=== PATIENT | male | born 1945 | race Caucasian/White ===

== ENCOUNTER 2017-04-20 11:30 | Outpatient (RCR) | payer MEDICARE, OTHER, SELFPAY ==
[2017-03-21 01:21] VITALS: BP 134/66; BP 168/60
--- NOTE | 2017-04-20 14:11 | PCM.CR.ITP ---
Exercise - Initial Assessment - Stages of Change Stages of Change:: Action - Exercise Prescription Mode:: Treadmill, Rower, Airdyne, NuStep Angina with exercise?: No Target Heart Rate:: 110-118 - Hypertension Do any of the following apply?: Yes - Intervention Home Exercise/Activity Goal:: Sitting Time <3 hrs/day - Education Goals:: Warm-up, RPE LURDES Scale, S/S, Safe Exercise, Self-Monitoring - Exercise Program Goals Exercise Program Goals: Aerobic Activity >30 min Exercise - 30-day Assessment - Stages of Change Stages of Change:: Action - Exercise Prescription Mode:: Treadmill, Airdyne, NuStep Frequency (x/week): 3 Duration:: 35 METs - Progression: 0.5-1 MET as tolerated: 3.1 Target Heart Rate:: 110-118 - Intervention Home Exercise/Activity Goal:: Sitting Time <3 hrs/day - Education Goals:: Warm-up, RPE LURDES Scale, S/S, Safe Exercise, Self-Monitoring - Exercise Program Goals Exercise Program Goals: Aerobic Activity >30 min Exercise - 60-Day Assessment - Visit Date of Eval: 03/18/17 - Stages of Change Stages of Change:: Action - Exercise Prescription Mode:: Treadmill, Airdyne, NuStep Frequency (x/week): 3 Duration:: 30 METs: 4.7 Target Heart Rate:: 110-118 - Hypertension Medication Changes:: No - Intervention Home Exercise/Activity Goal:: Sitting Time <3 hrs/day - Education Goals:: Warm-up, RPE LURDES Scale, S/S, Safe Exercise, Self-Monitoring - Exercise Program Goals Exercise Program Goals: Aerobic Activity >30 min Exercise - 90-Day Assessment - Visit Date of Eval: 04/20/17 Session #:: 30 - Stages of Change Stages of Change:: Action - Exercise Prescription Mode:: Treadmill, Airdyne, NuStep Frequency (x/week): 3 - patient at maximal levels Duration:: 30 METs: 4.7 Target Heart Rate:: 110-118 - Hypertension Resting Blood Pressure:: 122/56 Peak Exercise Blood Pressure:: 158/70 Medication Changes:: No - Intervention Home Exercise/Activity Goal:: Sitting Time <3 hrs/day - Education Goals:: Warm-up, RPE LURDES Scale, S/S, Safe Exercise, Self-Monitoring - Exercise Program Goals Exercise Program Goals: Aerobic Activity >30 min Exercise - Final/Discharge - Hypertension Do any of the following apply?: Yes Nutrition - Initial Assessment - Program Goals Nutrition Program Goals: LDL <70. Total Cholesterol <200. HDL >45. Triglycerides <150. HgbA1C <7%. BMI <25 - Stages of Change Stages of Change:: Action - Lipids HDL Cholesterol (mg/dL) Goal = less than 45 mg/dL: 31 LDL Cholesterol (mg/dL) Goal = less than 70 mg/dL: 79 - Diabetes Diabetes:: No Non-Insulin Dependent?: No - Weight Management Body Fat %:: 27.91 Total Score:: 6 - Intervention Referral to dietitian:: No Referral to Diabetic Clinic:: No Will attend diet classes:: Yes - Education Gave educational materials for:: Healthy eating Nutrition - 30-Day Assessment - Program Goals Nutrition Program Goals: LDL <70. Total Cholesterol <200. HDL >45. Triglycerides <150. HgbA1C <7%. BMI <25 - Stages of Change Stages of Change:: Action - Lipids Has the patient seen the dietitian?: No - Diabetes Diabetes:: No Insulin: No Non-Insulin Dependent?: No - Intervention Referral to dietitian:: No Referral to Diabetic Clinic:: No Will attend diet classes:: Yes - Education Attended class for:: Healthy eating Nutrition - 60-Day Assessment - Program Goals Nutrition Program Goals: LDL <70. Total Cholesterol <200. HDL >45. Triglycerides <150. HgbA1C <7%. BMI <25 - Visit Date of Eval: 03/18/17 - Stages of Change Stages of Change:: Action - Lipids Has the patient seen the dietitian?: No - Diabetes Diabetes:: No Insulin: No Non-Insulin Dependent?: No - Intervention Referral to dietitian:: No Referral to Diabetic Clinic:: No Will attend diet classes:: Yes - Education Attended class for:: Healthy eating Nutrition - 90-Day Assessment - Program Goals Nutrition Program Goals: LDL <70. Total Cholesterol <200. HDL >45. Triglycerides <150. HgbA1C <7%. BMI <25 - Visit Date of Eval: 04/20/17 - Stages of Change Stages of Change:: Action - Lipids Has the patient seen the dietitian?: No - Diabetes Diabetes:: No Insulin: No Non-Insulin Dependent?: No - Weight Management Weight:: 90.038 kg - Intervention Referral to dietitian:: No Referral to Diabetic Clinic:: No Will attend diet classes:: Yes - Education Attended class for:: Healthy eating Nutrition - Final Assessment - Program Goals Nutrition Program Goals: LDL <70. Total Cholesterol <200. HDL >45. Triglycerides <150. HgbA1C <7%. BMI <25 - Diabetes Diabetes:: No Insulin: No Non-Insulin Dependent?: No - Weight Management Body Fat %:: 27.91 Total Score:: 6 - Intervention Referral to dietitian:: No Referral to Diabetic Clinic:: No Will attend diet classes:: Yes Tobacco - Initial Assessment - Program Goals Tobacco Program Goals: Complete smoking cessation. Attend education classes. Improve Knowledge Test score - Stage of Change Stages of Change:: Action - Learning Barriers Learning Barriers: Vision, Ready to Learn Total Score:: 10 - Family Support Do you have family support?: No - Tobacco Use Tobacco Use: Cigarettes How many cigarettes do you smoke per day?: 20 Years Smokin Do you use smokeless tobacco?: No - Intervention Smoking Cessation Referral:: Yes Individual Education/Counseling:: No Education Schedule Given:: Yes - Education Gave educational material for:: Tobacco triggers, Coronary artery disease, Risk factors, Sexuality, Medical compliance, Cardiac A&P, Angina signs & symptoms Tobacco - 30-Day Assessment - Program Goals Tobacco Program Goals: Complete smoking cessation. Attend education classes. Improve Knowledge Test score - Stage of Change Stages of Change:: Action - Learning Barriers Learning Barriers: Participates in education - Family Support Do you have family support?: No - Tobacco Use Tobacco Use: Non-smoker How many cigarettes do you smoke per day?: 20 Do you use smokeless tobacco?: No - Intervention Smoking Cessation Referral:: Yes Individual Education/Counseling:: No Education Schedule Given:: Yes - Education Attended class for:: Tobacco triggers, Coronary artery disease, Risk factors, Sexuality, Medical compliance, Cardiac A&P, Angina signs & symptoms Tobacco - 60-Day Assessment - Program Goals Tobacco Program Goals: Complete smoking cessation. Attend education classes. Improve Knowledge Test score - Stage of Change Stages of Change:: Action - Learning Barriers Learning Barriers: Participates in education - Family Support Do you have family support?: No - Tobacco Use Tobacco Use: Non-smoker How many cigarettes do you smoke per day?: 20 Do you use smokeless tobacco?: No - Intervention Smoking Cessation Referral:: Yes Individual Education/Counseling:: No Education Schedule Given:: Yes - Education Attended class for:: Tobacco triggers, Coronary artery disease, Risk factors, Sexuality, Medical compliance, Cardiac A&P, Angina signs & symptoms Tobacco - 90-Day Assessment - Program Goals Tobacco Program Goals: Complete smoking cessation. Attend education classes. Improve Knowledge Test score - Stage of Change Stages of Change:: Action - Learning Barriers Learning Barriers: Participates in education - Family Support Do you have family support?: No - Tobacco Use Tobacco Use: Non-smoker How many cigarettes do you smoke per day?: 20 Do you use smokeless tobacco?: No - Intervention Smoking Cessation Referral:: Yes Individual Education/Counseling:: No Education Schedule Given:: Yes - Education Attended class for:: Tobacco triggers, Coronary artery disease, Risk factors, Sexuality, Medical compliance, Cardiac A&P, Angina signs & symptoms Tobacco - Final Assessment - Program Goals Tobacco Program Goals: Complete smoking cessation. Attend education classes. Improve Knowledge Test score - Learning Barriers Cardiac Knowledge Test Score:: 10 - Family Support Do you have family support?: No - Tobacco Use Tobacco Use: Non-smoker How many cigarettes do you smoke per day?: 20 Do you use smokeless tobacco?: No - Intervention Smoking Cessation Referral:: Yes Individual Education/Counseling:: No Education Schedule Given:: Yes Psychosocial - Initial Assess - Target Goals Target Goals: Assess presence or absence of depression. Using a valid screening tool, maximizes coping skills. Positive support system - Stages of Change Stages of Change:: Action - Psychosocial Test Tool Used:: HANDS Depression Questionnaire Tests Completed: Mood Scale Test Self-Efficacy Score:: 4 - Patient/Program Goal Preventative Medication(s):: Aspirin - Assistive Devices Assistive Devices:: None Fall Risk Assessed:: Yes Psychosocial - 30-Day Assess - Target Goals Target Goals: Assess presence or absence of depression. Using a valid screening tool, maximizes coping skills. Positive support system - Stages of Change Stages of Change:: Action - Psychosocial Test Tool Used:: HANDS Depression Questionnaire Self-Efficacy Score:: 4 - Patient/Program Goal Preventative Medication(s):: Aspirin - Assistive Devices Assistive Devices:: None Fall Risk Assessed:: Yes Psychosocial - 60-Day Assess - Target Goals Target Goals: Assess presence or absence of depression. Using a valid screening tool, maximizes coping skills. Positive support system - Stages of Change Stages of Change:: Action - Psychosocial Test Tool Used:: HANDS Depression Questionnaire Self-Efficacy Score:: 4 - Patient/Program Goal Preventative Medication(s):: Aspirin - Assistive Devices Assistive Devices:: None Fall Risk Assessed:: Yes Psychosocial - 90-Day Assess - Target Goals Target Goals: Assess presence or absence of depression. Using a valid screening tool, maximizes coping skills. Positive support system - Stages of Change Stages of Change:: Action - Psychosocial Test Tool Used:: HANDS Depression Questionnaire Self-Efficacy Score:: 4 - Intervention PS - Interventions: Yes Attend Stress Management Classes, Yes Uses Stress Management Skills, No Referral to Mental Health, No Referral to [facility] Case Management, No Referral to Physician - Education Attended classes for:: Coping techniques, Signs & symptoms of depression, Stress management, Relaxation techniques - Patient/Program Goal Preventative Medication(s):: Aspirin - Assistive Devices Assistive Devices:: None Fall Risk Assessed:: Yes Psychosocial - Final Assessmen - Target Goals Target Goals: Assess presence or absence of depression. Using a valid screening tool, maximizes coping skills. Positive support system - Psychosocial Test Tool Used:: HANDS Depression Questionnaire Tests Completed: Mood Scale Test Self-Efficacy Score:: 4 - Patient/Program Goal Preventative Medication(s):: Aspirin - Assistive Devices Assistive Devices:: None Fall Risk Assessed:: Yes Patient Health Questionnaire 90-Day Re-eval Assessment 1. Little interest or pleasure in doing things: Not at all 2. Feeling down, depressed, or hopeless: Not at all 3. Trouble falling or staying asleep, or sleeping too much: Not at all 4. Feeling tired or having little energy: Not at all 5. Poor appetite or overeating: Not at all 6. Feeling bad about yourself -- or that you are a failure or have let yourself or your family down: Not at all 7. Trouble concentrating on things, such as reading the newspaper or watching television: Not at all 8. Moving or speaking so slowly that other people could have noticed. Or the opposite - being so fidgety or restless that you have been moving around a lot more than usual: Not at all 9. Thoughts that you would be better off , or of hurting yourself in some way: Not at all Total Score: 0 Self-Efficacy 90-Day Re-eval Assessment We would like to know how confident you are in doing certain activities. Please select your confidence level for:: Select your confidence level for the following using the scale 1-10 where 1 is not at all confident and 10 is totally confident. Your score is the average of all 6 responses. Fatigue: How confident are you that you can keep the fatigue caused by your disease from interfering with the things you want to do? Select Number: 10 Physical Discomfort or Pain: How confident are you that you can keep the physical discomfort or pain of your disease from interfering with the things you want to do? Select Number: 10 Emotional Distress: How confident are you that you can keep the emotional distress caused by your disease from interfering with the things you want to do? Select Number: 10 Other Symptoms or Health Problems: How confident are you that you can keep other symptoms or health problems from interfering with the things you want to do? Select Number: 10 Different Tasks and Activities: How confident are you that you can do the different tasks and activities needed to manage your health condition so as to reduce your need to see a doctor? Select Number: 10 Medication: How confident are you that you can do things other than just taking medication to reduce how much your illness affects your everyday life? Select Number: 10 Total Score:: 10 Cardiac Rehabilitation Goals - Cardiac Rehab Goals Cardiac Rehabilitation Goals: 1. Maintain the individual as the primary focus of care. 2. To improve the patient's quality of life. 3. Identification of cardiac risk factors and provide cardiac risk factor management. 4. Enhance the psychosocial status of the patient. 5. Reconditioning enough to allow the patient to resume customary activities. 6. Control symptoms of cardiac disease - Scale Scale for measuring improvement of personal goals: Enter appropriate number in Comments. 2 = Unchanged. 3 = Slightly Better. 4 = Moderate Improvement. 5 = Met my Goal 90-Day Re-eval Assessment Personal Goals: Discharge Reassessment: Quit smoking (participate in smoking cessation - it's a process, Improve management of stress and emotions - improved, Improve energy level - goal met, Improve knowledge of cardiac disease - goal met, Improve muscle strength and endurance - goal met
[2017-04-20 14:14] VITALS: BP 122/56; BP 158/70
== END 2017-04-20 23:59 ==
LOC: CR 11:30
PROVIDERS: Family Provider Internal Medicine; PCP Internal Medicine; Visit Provider Internal Medicine Cardiovascular Disease
DX: Z95.5 Presence of coronary angioplasty implant and graft (principal); I25.10 Atherosclerotic heart disease of native coronary artery without angina pectoris; J44.9 Chronic obstructive pulmonary disease, unspecified; I10 Essential (primary) hypertension; E78.5 Hyperlipidemia, unspecified; F17.200 Nicotine dependence, unspecified, uncomplicated; I25.2 Old myocardial infarction
CPT/HCPCS: 93798

== ENCOUNTER → 2017-05-06 11:00 | Outpatient (RCR) | payer MEDICARE, OTHER, SELFPAY ==
[2017-01-13 09:00] VITALS: BP 134/75
[2017-01-13 10:04] VITALS: BP 134/75
[2017-01-24 13:35] VITALS: BMI 27.8
[2017-04-21 00:46] VITALS: BP 122/56; BP 158/70
== END | disposition home or self-care (01) ==
LOC: CR 04-25 10:57
PROVIDERS: Family Provider Internal Medicine; PCP Internal Medicine; Visit Provider Internal Medicine Cardiovascular Disease
DX: Z95.5 Presence of coronary angioplasty implant and graft (principal); I25.10 Atherosclerotic heart disease of native coronary artery without angina pectoris; J44.9 Chronic obstructive pulmonary disease, unspecified; I10 Essential (primary) hypertension; E78.5 Hyperlipidemia, unspecified; F17.200 Nicotine dependence, unspecified, uncomplicated; I25.2 Old myocardial infarction
CPT/HCPCS: 93798

== ENCOUNTER → 2017-12-09 10:36 | Outpatient (CLI) | payer MEDICARE, OTHER, SELFPAY ==
--- NOTE | 2017-12-09 10:38 | STE_ITS ---
Reason For Study: CAD/ASHD Stress Results Protocol: Gregory Protocol Maximum Predicted HR: 147 bpm Target HR: 125 bpm% Max imum Predicted HR: 88 % DurationHeart Rate Stage (mm:ss) (bpm) BP BASELINE 62 128/60 STAGE 1 3:00 90 148/60 STAGE 2 3:00 11 6 174/74 STAGE 3 0:45 13 0 / RECOVERY 75 138/62 Stress Duration: 6:45 mm:ss Maximum Stress HR: 130 bpm Baseline Echocardiogram Findings The estimated ejection fraction is 65 %. Stress Echo Wall motion Data Resting WMIntermediate WMStress WM Resting Wall Motion Wall Motion Stress No regional wall motion No regional wall motion abnormalities noted. abnormalities noted. EKG Data The baseline ECG displays normal sinus rhythm. The patient exercised according to the regular Gregory protocol for a total duration of 6:46. The maximum heart rate attained was 130 beats per minute. This was 88% of maximum predicted heart rate. The patient exercised into stage 3 of the Gregory protocol. During stress, there were no ST or T wave changes noted to suggest ischemia. No clinical angina was noted. No arrhythmias noted. Interpretation Summary The estimated ejection fraction is 65 %. Normal, adequate, treadmill echocardiogram. Negative for ischemia by EKG and echocardiographic criteria. No anginal symptoms noted. No arrhythmias noted. Appropriate blood pressure response to age. Average exercise capacity for age. Final LVEF is 75%. Test terminated due to fatigue. Ordering Physician: Willy Morillo Referring Physician: Willy Morillo Performed By: Valorie Moreno, CHRISTIANE, RVT
== END ==
PROVIDERS: Family Provider Internal Medicine; PCP Internal Medicine; Visit Provider Internal Medicine Cardiovascular Disease
DX: I25.10 Atherosclerotic heart disease of native coronary artery without angina pectoris (principal); Z98.61 Coronary angioplasty status; Z95.5 Presence of coronary angioplasty implant and graft; I25.2 Old myocardial infarction; E78.5 Hyperlipidemia, unspecified; F17.210 Nicotine dependence, cigarettes, uncomplicated
CPT/HCPCS: 93017; 93350

== ENCOUNTER 2017-12-26 23:27 | Emergency (ER) | payer MEDICARE, OTHER, SELFPAY ==
[2017-12-26 23:28] VITALS: BP 157/72; PULSE 78; RESP 19; TEMP 36.6; O2SAT 97; BMI 28.3
--- NOTE | 2017-12-26 23:54 | RAD_ITS ---
STUDY: X-RAY CHEST REASON FOR EXAM: Male, 72 years old. Intermittent sharp chest pain TECHNIQUE: 2 views COMPARISON: December 23, 2016 FINDINGS: There is a background of COPD demonstrated by hyperinflation lungs and flattening of the hemidiaphragms. There is blunting of the right costophrenic angle. There is no acute pneumonia or failure. The heart is normal.. Normal visualized thoracic spine. Normal visualized ribs, clavicles, and shoulders. There is no demonstrated abnormality of the visualized soft tissue structures of the upper abdomen. RAD/Chest PA and Lateral IMPRESSION: A background of COPD. Blunting of the right costophrenic angle. No acute pneumonia. No failure. Electronically Signed: Solitario Briceno MD at 0:35 EDT Tel , Service support ,
--- NOTE | 2017-12-26 23:54 | EKG12_ITS ---
Test Reason : CP Blood Pressure : / mmHG Vent. Rate : 071 BPM Atrial Rate : 071 BPM P-R Int : 180 ms QRS Dur : 106 ms QT Int : 404 ms P-R-T Axes : 059 015 018 degrees QTc Int : 439 ms Normal sinus rhythm Low voltage QRS (limb leads) Inferior infarct , age undetermined Abnormal ECG Confirmed by BLANCHE WALKER, ADITYA ([id number]), city editor SAE YANCEY ([id number]) on 12/29/2017 1:38:37 PM Referred By: NUNO Confirmed By:ADITYA MANCIA MD
--- NOTE | 2017-12-26 23:55 | ED.VISSUMM ---
- ER Visit Summary Date of Service: 12/26/17 Chief Complaint: [] Upper abdominal pain History of Present Illness: The patient is a 72 M stated he had upper abdominal pain that started at 5 PM this evening. It came on gradually when he was stretching doing light activity at home. It lasted for a second. It felt like a pinching and grabbing in his epigastric region. There is no discomfort in his chest. He stated that he took a Ventolin puff and belched and it went away. It has not come back. Currently is gone. He had a PCI with angioplasty of his right coronary artery in 2017. He had a stress test 2 weeks ago negative per patient. He sees Dr. Morillo. He did take a sublingual nitroglycerin as well. He is on aspirin and Plavix. He wanted to make sure everything was okay with his heart. Physical Examination: [] Vital signs reviewed General: Well-nourished well-developed Head: Normocephalic atraumatic Eyes: Pupils equal round and reactive to light extraocular movements intact ENT: TMs clear no hemotympanum no trauma Neck: Nontender full range of motion Cardiovascular: Regular rate rhythm no murmurs normal S1-S2 Respiratory: No distress clear to auscultation bilaterally chest nontender Abdomen: Soft nontender nondistended normal bowel sounds no masses Back: Nontender no CVA tenderness Extremities: Nontender active range of motion ?4 extremities no trauma Skin: Normal color no trauma Neuro alert oriented cranial nerves II through XII intact normal strength sensation reflexes Test Results: [] Emergency Department Course and Treatment: [] EKG shows sinus rhythm at a rate of 71. T wave inversion inferior lead III. No STEMI pattern. Lab work and chest x-ray obtained. Asymptomatic care currently. CBC normal. Chemistries normal except glucose 113 BUN 22. Heart enzymes negative. Chest x-ray shows nothing acute. Chronic COPD changes. Patient remains resting comfortably. I did review his stress echo from last month and it was normal. He does not think is anything acute. I do not think he needs to be admitted and the patient agrees. It does not sound cardiac. This was in the epigastric region. I feel he can follow-up as an outpatient. If he develops any chest pain shortness of breath or other symptoms he will return. Treatment Plan: [] Disposition: [] Impression: [] Epigastric abdominal pain This note was generated with Dragon dictation software. It may contain incorrect words, spelling, and punctuation that were not noted in review of the chart prior to signing ED Disposition - Plan for ED Patient: Chief Complaint: Chest Pain Referrals: Katarina Lopez DO [Primary Care Provider] -
[2017-12-27 00:17] LABS: Absolute Lymphocyte Count 2.17 X10^3/ul (0.83-4.51); Absolute Neutrophil Count 4.5 X10^3/uL (2.0-7.7); Basophil# 0.04 X10^3/uL; Basophil% 0.5 % (0-1); Eosinophil# 0.23 X10^3/uL; Eosinophils% 2.9 % (0-5); Hematocrit 42.9 % (40-54); Hemoglobin 14.5 g/dl (13.0-16.5); Lymphocyte # 2.17 X10^3/ul (4.0); Lymphocyte % 27.2 % (19-41); Mean Corp Hgb Conc 33.8 g/gl (32-36); Mean Corpuscular Hgb 33.6 pg (27.0-32.0); Mean Corpuscular Volume 99.5 fL (80-94); Mean Platelet Vol. 10.4 fl (6.2-12.0); Monocyte# 1.06 X10^3/uL; Monocyte% 13.3 % (0-10); Neutrophil # 4.48 X10^3/uL (2.7-7.7); Platelet Count 201 K/mm3 (150-450); RBC Distribution Width CV 13.6 % (11.6-14.6); RBC Distribution Width SD 49.5 fl (35.1-43.9); Red Blood Count 4.31 M/mm3 (4.6-6.2)
[2017-12-27 00:18] LABS: POSITIVE COUNT NO; POSITIVE DIFFERENTIAL NO; POSITIVE MORPHOLOGY NO
[2017-12-27 00:28] LABS: Anion Gap 8 (5-15); BUN 22 mg/dL (7-18); BUN/Creat Ratio 18.3 RATIO (10-20); Calcium,Total 8.7 mg/dL (8.5-10.1); Chloride 104 mmol/L (98-107); EST Glomerular Filtration Rate 63 mL/min (>60); Est Glom Filt Rate - Afr Amer 76 mL/min (>60); Estimated Creatinine Clearance 54.83 ml/min; Glucose 113 mg/dL (74-106); Potassium 3.5 mmol/L (3.5-5.1); Sodium Level 139 mmol/L (136-145)
[2017-12-27 00:34] VITALS: BP 133/67; PULSE 52; RESP 14; O2SAT 95
[2017-12-27 01:12] VITALS: BP 135/67; PULSE 47; RESP 21; O2SAT 96
--- NOTE | 2017-12-27 01:25 | ED.DEP ---
ED Disposition - Plan for ED Patient: Disposition: Home or Assisted Living Chief Complaint: Chest Pain Instructions: Abdominal Pain Referrals: Katarina Lopez DO [Primary Care Provider] - Willy Morillo MD [STAFF PHYSICIAN] -
[2017-12-27 01:39] VITALS: BP 123/74; PULSE 51; RESP 16; O2SAT 97
--- NOTE | 2017-12-27 01:40 | ED.RN ---
PT GIVEN WRITTEN AND VERBAL DISCHARGE INSTRUCTIONS AND VERBALIZES UNDERSTANDING. PT REPORTS THAT HE IS PAIN FREE. PT IV D/C AND COVERED WITH 2X2 GAUZE DRESSING AND PAPER TAPE. PT DRESSES SELF AND AMBULATES OUT OF DEPT WITH SPOUSE. NO ASSISTANCE NEEDED FROM STAFF.
== END 2017-12-27 01:41 | disposition home or self-care (01) ==
PROVIDERS: Emergency Provider Emergency Medicine; Family Provider Internal Medicine; PCP Internal Medicine
DX: R10.13 Epigastric pain (principal); I25.10 Atherosclerotic heart disease of native coronary artery without angina pectoris; I25.2 Old myocardial infarction; E78.00 Pure hypercholesterolemia, unspecified; I10 Essential (primary) hypertension; J44.9 Chronic obstructive pulmonary disease, unspecified; Z95.5 Presence of coronary angioplasty implant and graft; Z79.02 Long term (current) use of antithrombotics/antiplatelets; Z79.82 Long term (current) use of aspirin; Z79.899 Other long term (current) drug therapy; Z72.0 Tobacco use
CPT/HCPCS: 71046; 80048; 84484; 85025; 93005; 99285; A4216

== ENCOUNTER → 2018-05-10 16:57 | Outpatient (CLI) | payer MEDICARE, OTHER, SELFPAY ==
--- NOTE | 2018-05-10 17:05 | CT_ITS ---
STUDY: CTA NECK WITH CONTRAST REASON FOR EXAM: Male, 72 years old. History of carotid stenosis. RADIATION DOSAGE (If Supplied By Facility): CTDIvol = ( 19.80 ) mGy, DLP = ( 679.94 ) mGycm TECHNIQUE: CT angiography with multi-detector data acquisition was performed from the aortic arch to the skull base following intravenous administration of Isovue 370 100CC IV. MIP images were reconstructed from the axial data set. Post-processing of the angiographic images was performed, with multiplanar reformation and 3D reconstruction. Individualized dose optimization techniques were used for this CT. COMPARISON: Comparison is made with prior study dated October 12, 2013. FINDINGS: AORTIC ARCH: There is atherosclerotic calcific plaque formation of the aortic arch and great vessels arising from the aortic arch, without a hemodynamically significant stenosis. There is a normal origin of the brachiocephalic, left common carotid, and left subclavian arteries. RIGHT CAROTID ARTERIES: Normal right common carotid artery (CCA). There is mild atherosclerotic plaque formation with minimal narrowing of the right carotid bulb. There is complete occlusion of the origin of the right internal carotid artery without demonstrated arterial flow. Normal visualized cervical portion of the right internal carotid artery. Normal origin of the right external carotid artery (ECA). LEFT CAROTID ARTERIES: Normal left common carotid artery (CCA). Normal left common carotid bulb. There is moderate atherosclerotic plaque formation of the origin of the left internal carotid artery with an estimated stenosis of 50-69% stenosis. Normal visualized cervical portion of the left internal carotid artery. Normal origin of the left external carotid artery (ECA). VERTEBRAL ARTERIES: Normal bilateral vertebral arteries. Focal calcific plaque at the origin of the right vertebral artery with approximately 50% stenosis. CT/CTA Neck W/WO Contrast IMPRESSION: Total occlusion of the right internal carotid artery just distal to its origin. 50-69% narrowing at the origin of the left internal carotid artery. Electronically Signed: Christiano Ramsey MD at 8:40 EST , Service support ,
== END ==
PROVIDERS: Family Provider Internal Medicine; PCP Internal Medicine; Referring Provider Internal Medicine; Visit Provider Internal Medicine
DX: I65.29 Occlusion and stenosis of unspecified carotid artery (principal)
CPT/HCPCS: 70498; Q9967

== ENCOUNTER 2019-02-14 16:07 | Emergency (ER) | payer MEDICARE, OTHER, SELFPAY ==
[2019-02-12 15:35] VITALS: BMI 29.2
[2019-02-14 16:08] VITALS: BP 161/79; PULSE 80; RESP 15; TEMP 36.6; O2SAT 99; BMI 29.2
[2019-02-14 16:11] VITALS: BP 161/79; PULSE 69; RESP 15; O2SAT 99
--- NOTE | 2019-02-14 16:22 | ED.VISSUMM ---
- ER Visit Summary Date of Service: 02/14/19 Chief Complaint: Left foot injury History of Present Illness: The patient is a 73 M who has an injury to the left foot. He states that he fell today while going to the bathroom. He was able to ambulate afterwards but when he sat down pain started in the left foot it is in the middle portion of his foot. No history of fractures or surgeries to this foot. Pain is worse with walking and with movement. He is on Plavix at home for coronary disease. He took nothing for pain Physical Examination: Vital signs reviewed. Left foot exam reveals tenderness over the third through fifth metatarsal area of the foot. There is no fifth metatarsal head tenderness. There is no Achilles tenderness. He has decreased range of motion secondary to pain. Test Results: Right foot x-ray interpreted by myself and radiologist as osteopenia with no fractures Emergency Department Course and Treatment: Patient was given [place] for pain. X-rays are negative for fracture. Patient will ice, elevate and use Tylenol for pain. He will follow-up with his doctor. Treatment Plan: [] Disposition: Discharge Impression: Left foot contusion and hematoma This note was generated with [employer] dictation software. It may contain incorrect words, spelling, and punctuation that were not noted in review of the chart prior to signing ED Disposition - Plan for ED Patient: Referrals: Katarina Lopez DO [Primary Care Provider] -
--- NOTE | 2019-02-14 16:30 | RAD_ITS ---
STUDY: X-RAY - LEFT FOOT CLINICAL: Male, 73 years old. Swelling and bruising over foot. No known injury. TECHNIQUE: 3 view(s) of the foot. COMPARISON: None. FINDINGS: Generalized osteopenia. Inferior calcaneal spur. Normal visualized subtalar, talonavicular, calcaneocuboid, tarsal and tarsometatarsal articulations. Normal metatarsi. Mild arthrosis of the MTP and IP joints, most marked at the first IP joint. Hammertoe deformities. The soft tissue structures are unremarkable. RAD/Foot min 3 Views IMPRESSION: Osteopenia with inferior calcaneal spur and osteoarthritic changes. No acute abnormality. Electronically Signed: Bakari Thorpe MD at 16:48 EST , Service support ,
[2019-02-14] MEDS: HYDROcodone Bitartrate/Apap 5/325 Tablet PO (17:01)
--- NOTE | 2019-02-14 17:11 | ED.DEP ---
ED Disposition - Plan for ED Patient: Disposition: Home or Assisted Living Instructions: CONTUSION, Foot Referrals: Katarina Lopez DO [Primary Care Provider] -
[2019-02-14 17:22] VITALS: BP 161/78; PULSE 63; RESP 15; O2SAT 96
== END 2019-02-14 17:24 | disposition home or self-care (01) ==
PROVIDERS: Emergency Provider Emergency Medicine; Family Provider Internal Medicine; PCP Internal Medicine
DX: S90.32XA Contusion of left foot, initial encounter (principal); M85.872 Other specified disorders of bone density and structure, left ankle and foot; W19.XXXA Unspecified fall, initial encounter; Y93.9 Activity, unspecified; Y92.9 Unspecified place or not applicable; I25.10 Atherosclerotic heart disease of native coronary artery without angina pectoris; K21.9 Gastro-esophageal reflux disease without esophagitis; I10 Essential (primary) hypertension; E78.00 Pure hypercholesterolemia, unspecified; Z79.02 Long term (current) use of antithrombotics/antiplatelets; Z79.82 Long term (current) use of aspirin; Z79.899 Other long term (current) drug therapy; Z72.0 Tobacco use
CPT/HCPCS: 73630; 99282

== ENCOUNTER → 2019-02-21 10:10 | Outpatient (CLI) | payer MEDICARE, OTHER, SELFPAY ==
[2019-02-14 16:08] VITALS: BMI 29.2
--- NOTE | 2019-02-21 10:13 | RAD_ITS ---
STUDY: X-RAY - RIGHT FOOT CLINICAL: Male, 73 years old. Swelling and bruising following a recent fall. TECHNIQUE: 3 view(s) of the foot. COMPARISON: Comparison is made with prior study dated February 14, 2019. FINDINGS: There is a plantar calcaneal spur. Normal visualized subtalar, talonavicular, calcaneocuboid, tarsal and tarsometatarsal articulations. Normal metatarsi. Normal metatarsophalangeal joint of the great toe. Normal tibial and fibular sesamoid bones. Normal interphalangeal joint of the great toe. Normal phalanges of the great toe. Normal second through fifth metatarsophalangeal joints. Normal interphalangeal joints and phalanges of the lesser toes. Soft tissue swelling. RAD/Foot min 3 Views IMPRESSION: Soft tissue swelling. Electronically Signed: Christiano Ramsey, at 10:55 EST , Service support ,
== END ==
PROVIDERS: Family Provider Internal Medicine; PCP Internal Medicine; Referring Provider Internal Medicine; Visit Provider Internal Medicine
DX: M79.672 Pain in left foot (principal)
CPT/HCPCS: 73630

== ENCOUNTER 2019-03-30 09:46 | Emergency (ER) | payer MEDICARE, OTHER, SELFPAY ==
[2019-03-30 09:47] VITALS: BP 154/80; PULSE 67; RESP 24; TEMP 36.6; O2SAT 94; BMI 29.2
[2019-03-30 09:50] VITALS: BP 154/80; PULSE 67; RESP 24; TEMP 36.6; O2SAT 94
[2019-03-30 09:51] VITALS: O2SAT 94
--- NOTE | 2019-03-30 10:09 | ED.DCSUM_ITS ---
- ER Visit Summary Date of Service: 03/30/19 Chief Complaint: Productive cough History of Present Illness: The patient is a 73 M history of CAD, MT on Plavix. History of COPD hypertension high cholesterol. He does have a cardiac stent. Patient states he had bronchitis in January. He is recently been diagnosed with that again. His primary care physician started him on Levaquin for last several days. He denies chest pain or hemoptysis. Said he has had a productive cough of greenish sputum. Physical Examination: Older male no acute distress. Vital signs stable afebrile. Pulse ox 94% on room air no signs hypoxia. H EENT exam unremarkable. Moist mucous membranes. Posterior pharynx unremarkable. Neck nontender. No lymphadenopathy. Trachea midline. Lungs wet sounding cough. No rales, rhonchi or wheezing. Equal symmetrical. Heart regular rate and rhythm no murmur. Abdomen soft nontender. Patient is moving all 4 extremities. Calves are nontender without edema or cords. Neurologically is awake and alert with no focal motor deficit. Test Results: Chest x-ray AP and lateral 2 views read by myself shows chronic changes but no acute process. Normal cardiac silhouette. No pneumonia. Emergency Department Course and Treatment: History and exam are consistent with bronchitis. Chest x-ray to be obtained to evaluate for possible pneumonia. Patient is currently already on treatment with Levaquin and inhaler. Treatment Plan: Repeat exam patient is doing well at 11:16 PM. He has both inhalers and nebulizer at home. He is currently on antibiotic Levaquin and still has 4 days of that. And he also recently had a steroid injection. We will continue his current medications and follow-up as needed or return if worse. Disposition: Discharge Impression: Acute bronchitis This note was generated with [employer] dictation software. It may contain incorrect words, spelling, and punctuation that were not noted in review of the chart prior to signing ED Disposition - Plan for ED Patient: Referrals: Katarina Lopez DO [Primary Care Provider] -
--- NOTE | 2019-03-30 10:09 | RAD_ITS ---
STUDY: X-RAY CHEST REASON FOR EXAM: Male, 73 years old. PROD COUGH, GREEN COLOR. SOB. HX RECENT INFECTIONS S/P TEETH EXTRACTIONS. TECHNIQUE: PA and lateral views of the chest. COMPARISON: Comparison is made with prior examination dated December 26, 2017. FINDINGS: There is evidence of gynecomastia. Stable blunting of both costophrenic angles. Stable minimal increased markings at the lung bases. Normal size heart. Normal mediastinum and gordon. Normal visualized pulmonary arteries. There is atherosclerotic calcification of the aortic arch with tortuosity. There are degenerative changes of the visualized thoracic spine. Healed right-sided rib fractures. There is no demonstrated abnormality of the visualized soft tissue structures of the upper abdomen. RAD/Chest PA and Lateral IMPRESSION: Stable examination. Electronically Signed: Christiano Ramsey, at 11:16 EST , Service support ,
[2019-03-30 11:05] VITALS: BP 154/80; PULSE 67; RESP 24; TEMP 36.6; O2SAT 94
--- NOTE | 2019-03-30 11:19 | ED.DEP ---
ED Disposition - Plan for ED Patient: Disposition: Home or Assisted Living Instructions: BRONCHITIS with Wheezing (Adult) Referrals: Katarina Lopez, [Primary Care Provider] - 3-5 Days if not improving Additional Instructions: Continue your current antibiotic Levaquin. Also continue your inhaler and your nebulizer aerosol treatments at home. Follow-up with your doctor if not improving or return to the ER feeling worse. Stop smoking altogether.
[2019-03-30 11:27] VITALS: BP 144/69; PULSE 67; RESP 18; O2SAT 93
== END 2019-03-30 11:27 | disposition home or self-care (01) ==
PROVIDERS: Emergency Provider Emergency Medicine; Family Provider Internal Medicine; PCP Internal Medicine
DX: J44.0 Chronic obstructive pulmonary disease with (acute) lower respiratory infection (principal); J20.9 Acute bronchitis, unspecified; I25.10 Atherosclerotic heart disease of native coronary artery without angina pectoris; I25.2 Old myocardial infarction; I10 Essential (primary) hypertension; E78.00 Pure hypercholesterolemia, unspecified; Z95.5 Presence of coronary angioplasty implant and graft; Z79.02 Long term (current) use of antithrombotics/antiplatelets; Z79.82 Long term (current) use of aspirin; Z79.899 Other long term (current) drug therapy; F17.200 Nicotine dependence, unspecified, uncomplicated
CPT/HCPCS: 71046; 99284

== ENCOUNTER → 2020-11-04 08:56 | Outpatient (CLI) | payer MEDICARE, OTHER, SELFPAY ==
[2020-09-24 13:47] VITALS: BMI 29.2
--- NOTE | 2020-11-04 09:00 | BD_ITS ---
STUDY: DUAL ENERGY X-RAY ABSORPTIOMETRY / DXA REASON FOR EXAM: Male, 75 years old. M810. VITAMIN D deficiency. TECHNIQUE: Bone Mineral Density (BMD) measurements of lumbar spine and bilateral hips were obtained. COMPARISON: Comparison is made with prior study 06/08/2011. FINDINGS: Lumbar Spine (L1-L4): g/cm2 (0.876) / T-score (-1.8) / Z-score (-0.7) Findings are suggestive of osteopenia with a moderate fracture risk. Left Femur Total: g/cm2 (0.847) / T-score (-1.2) / Z-score (-0.4) Left Femoral Neck: g/cm2 (0.616) / T-score (-2.3) / Z-score (-0.9) Right Femur Total: g/cm2 (0.750) / T-score (-1.9) / Z-score (-1.0) Right Femoral Neck: g/cm2 (0.551) / T-score (-2.8) / Z-score (-1.4) The T-Scores on the most recent prior examination were: Lumbar Spine (L1-L4): There has been worsening of bone density since the previous examination. Left Femur Total: which represents an improvement of 6%. Right Femur Total: which represents an improvement of 4.8%. BD/Dexa Bone Density Study IMPRESSION: The patient is considered osteoporotic as outlined below according to World Pop Organization (WHO) criteria with a high fracture risk. There has been improvement of bone density since the previous examination. Reference Information: The T-score is the number of standard deviations above or below the standard which is normal for young adults at their peak bone mineral density. The World Health Organization (WHO) interprets the T-scores as follows: Above -1 Normal bone density Between -1 and -2.5 Osteopenia Equal to / or below -2.5 Osteoporosis As a practical clinical guideline, osteopenia may be graded as follows: Mild -1 through -1.5 Moderate -1.6 through -2.0 Severe -2.1 through -2.4 The Z-score is the number of standard deviations above or below age-matched controls. A Z-score of less than -1.5 would be considered abnormal. References: 1. NIH Osteoporosis and Related Bone Diseases www osteo.org 2. International Society for Clinical Densitometry www iscd.org 3. National Osteoporosis Foundation www nof.org Electronically Signed: Christiano Ramsey MD at 9:29 EDT , Service support ,
== END ==
PROVIDERS: PCP Internal Medicine; Referring Provider Internal Medicine; Visit Provider Internal Medicine
DX: M81.0 Age-related osteoporosis without current pathological fracture (principal)
CPT/HCPCS: 77080

== ENCOUNTER → 2022-10-14 | Outpatient (CLI) | payer MEDICARE, SELFPAY ==
--- NOTE | 2022-10-14 17:19 | MRI_ITS ---
STUDY: MRA OF THE HEAD WITHOUT CONTRAST REASON FOR EXAM: Male, 77 years old. Middle cerebral artery aneurysm TECHNIQUE: 3-D qmnf-uj-fawdne (TOF) imaging was performed with MIPs. The study was performed unenhanced. COMPARISON: CTA neck with contrast 05/10/2018 and 10/12/2013. 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 Normal left upper cervical internal carotid artery, left petrous segments of the left internal carotid artery. Normal petrous segments of the left internal carotid artery. Chronic complete occlusion of the cavernous segments of the right internal carotid artery in the right supraclinoid internal carotid artery. Normal left cavernous carotid artery with a normal supraclinoid bifurcation. Normal right A1 segment of the anterior cerebral artery. Normal left A1 segment of the anterior cerebral artery. Normal intact anterior communicating artery (ACOM). Normal bilateral A2 segments of the anterior cerebral arteries. Normal right M1 and M2 segments of the middle cerebral arteries, with a normal M1 bifurcation. Normal left M1 and M2 segments of the middle cerebral arteries, with a normal M1 bifurcation. No visible right posterior communicating artery (PCOM). No visible left posterior communicating artery (PCOM). Normal bilateral vertebral arteries. Normal basilar artery with a normal basilar bifurcation. The visualized bilateral superior cerebellar (SCA) arteries are normal. Normal bilateral P1, P2 and visualized P3 segments of the posterior cerebral arteries. There is no demonstrated aneurysm of the [place]. There is no major vessel occlusion or hemodynamically significant stenosis. MRI/MRA Head ONLY without Contrast IMPRESSION: 1. 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 2. Collateral flow to the right HAYDEE and right MCA territories from the left carotid across patent anterior communicating artery. 3. No MRA evidence of any intracranial aneurysm, saccular or fusiform type. 4. No other vaso-occlusive disease of the anterior and posterior intracranial circulation. Electronically Signed: Brannon Jasmine MD at 8:41 EDT ,
== END | disposition home or self-care (01) ==
LOC: MRI 16:53
PROVIDERS: PCP Internal Medicine; Referring Provider Internal Medicine; Visit Provider Internal Medicine
DX: I67.1 Cerebral aneurysm, nonruptured (principal)
CPT/HCPCS: 70544

== ENCOUNTER → 2022-10-18 | Outpatient (CLI) | payer MEDICARE, SELFPAY | END | disposition home or self-care (01) | PROVIDERS: PCP Internal Medicine; Referring Provider Internal Medicine; Visit Provider Internal Medicine | DX: R00.1 Bradycardia, unspecified (principal) | CPT/HCPCS: 93225; 93226 ==

== ENCOUNTER → 2023-03-18 | Outpatient (CLI) | payer MEDICARE, SELFPAY ==
--- NOTE | 2023-03-18 12:51 | CDU_ITS ---
Reason For Study: Carotid stenosis Rt. Velocities/BP Lt. Velocities/BP Prox CCA 60.7/6.9 cm/sec. Prox CCA 117.4/24.3 cm/sec. Mid CCA 76.8/6.9 cm/sec. Mid CCA 174.1/44.4 cm/sec. Dist CCA 74/6 cm/sec. Dist CCA 135.7/31.6 cm/sec. Known ICA Occlusion. Prox ICA 275.8/83.6 cm/sec. Prox ECA 208.1/6 cm/sec. Mid ICA 149.7/36.5 cm/sec. Rt. Vert. 45.6/8.1 cm/sec. Dist ICA 137.5/37.1 cm/sec. Lt. ICA/CCA = 2.03. Prox ECA 128.4/7.9 cm/sec. Lt. Vert. 86.4/17 cm/sec. Right Extracranial There is homogeneous, smooth atherosclerotic plaque noted in the right common carotid artery. There is heterogeneous, irregular atherosclerotic plaque noted in the right internal carotid artery. The right internal carotid artery is occluded. There is heterogeneous, irregular atherosclerotic plaque noted in the right external carotid artery. Antegrade flow is noted in the right vertebral artery. Left Extracranial There is heterogeneous, irregular atherosclerotic plaque noted in the left common carotid artery. There is heterogeneous, irregular atherosclerotic plaque noted in the left internal carotid artery. There is heterogeneous, irregular atherosclerotic plaque noted in the left external carotid artery. Antegrade flow is noted in the left vertebral artery. Procedure Carotid Duplex [id number]. This is a Carotid Duplex examination using B-mode, color flow and specral Doppler. Exam performed in department. VL/Carotid Duplex Ultrasound Interpretation Summary Occlusion of the right extracranial internal carotid. Severe (>70%) stenosis left extracranial internal carotid. Patent and antegrade vertebrals bilaterally. Ordering Physician: Prachi Rogers Referring Physician: Katarina Lopez M.D. Performed By: Deb Glez RVT
== END | disposition home or self-care (01) ==
LOC: CVS 12:51
PROVIDERS: PCP Internal Medicine; Referring Provider Physician Assistant; Visit Provider Physician Assistant
DX: I65.23 Occlusion and stenosis of bilateral carotid arteries (principal)
CPT/HCPCS: 93880

== ENCOUNTER → 2023-04-04 | Outpatient (CLI) | payer MEDICARE, SELFPAY ==
[2023-04-04 17:15] LABS: Anion Gap 6 (5-15); BUN 26 mg/dL (7-18); BUN/Creat Ratio 23.2 RATIO (10-20); Calcium,Total 9.2 mg/dL (8.5-10.1); Chloride 107 mmol/L (98-107); Creatinine, Serum 1.12 mg/dL (0.70-1.30); EST Glomerular Filtration Rate 67 mL/min (>60); Est Glom Filt Rate - Afr Amer 81 mL/min (>60); Glucose 92 mg/dL (74-106); Sodium Level 142 mmol/L (136-145)
== END | disposition home or self-care (01) ==
LOC: LAB 15:31
PROVIDERS: PCP Internal Medicine; Referring Provider Physician Assistant; Visit Provider Physician Assistant
DX: I65.23 Occlusion and stenosis of bilateral carotid arteries (principal)
CPT/HCPCS: 36415; 80048

== ENCOUNTER → 2023-04-07 | Outpatient (CLI) | payer MEDICARE, SELFPAY ==
--- NOTE | 2023-04-07 14:31 | CT_ITS ---
STUDY: CTA HEAD AND NECK WITH CONTRAST REASON FOR EXAM: Male, 77 years old. L ICA stenosis, known R ICA occlusion RADIATION DOSAGE (If Supplied By Facility): CTDIvol = ( 29.26 ) mGy, DLP = ( 1556.61 ) mGycm TECHNIQUE: CT angiography was performed with a multi-detector CT scanner. Data acquisition was obtained from the skull base through the vertex following intravenous administration of IV 100mL Isovue-370. MIP images were reconstructed from the axial data set. Post-processing of the angiographic images was performed, with multiplanar reformation and 3D reconstruction. Individualized dose optimization techniques were used for this CT. COMPARISON: 10/12/2013, 05/10/2018, and MRA 10/14/2022 FINDINGS: Again seen is absent flow in the right petrous carotid artery. Normal flow in the left petrous carotid artery. Absent flow of the right cavernous carotid artery. Normal left cavernous carotid artery with a normal supraclinoid bifurcation. As on the prior exam, there is reconstitution of the right MCA and HAYDEE from the left cavernous carotid artery. Normal right A1 segments of the anterior cerebral artery. Normal left A1 segments of the anterior cerebral artery. Normal intact anterior communicating artery (ACOM). Normal bilateral A2 segments of the anterior cerebral arteries. Normal right M1 and M2 segments of the middle cerebral arteries, with a normal M1 bifurcation. Normal left M1 and M2 segments of the middle cerebral arteries, with a normal M1 bifurcation. Normal right posterior communicating artery (PCOM). Normal left posterior communicating artery (PCOM). Normal bilateral vertebral arteries. Normal basilar artery with a normal basilar bifurcation. The visualized bilateral superior cerebellar (SCA) arteries are normal. Normal bilateral P1, P2 and visualized P3 segments of the posterior cerebral arteries. There is no demonstrated aneurysm of the [place]. There is no demonstrated abnormality of the visualized brain. AORTIC ARCH: There is atherosclerotic calcific plaque formation of the aortic arch and great vessels arising from the aortic arch, without a hemodynamically significant stenosis. There is a normal origin of the brachiocephalic, left common carotid, and left subclavian arteries. RIGHT CAROTID ARTERIES: There is atherosclerotic plaque formation of the common carotid artery, but without a hemodynamically significant stenosis. There is extensive atherosclerotic plaque formation with severe narrowing of the right carotid bulb with a hemodynamically significant stenosis. There is complete occlusion of the origin of the right internal carotid artery without demonstrated arterial flow. Normal origin of the right external carotid artery (ECA). LEFT CAROTID ARTERIES: There is atherosclerotic plaque formation of the common carotid artery, but without a hemodynamically significant stenosis. There is extensive atherosclerotic plaque formation with severe narrowing of the carotid bulb with a hemodynamically significant stenosis. There is moderate atherosclerotic plaque formation of the origin of the left internal carotid artery with an estimated stenosis of 50-69% stenosis. There is atherosclerotic tortuous elongation of the cervical portion of the left internal carotid artery. Normal origin of the left external carotid artery (ECA). VERTEBRAL ARTERIES: Normal bilateral vertebral arteries. CT/CTA Head AND Neck W/ Contrast IMPRESSION: Stable occlusion of the right ICA with reconstitution of the right MCA and HAYDEE by way of the [place]. Severe plaque and high-grade stenosis of the left ICA. Findings grossly stable. Electronically Signed: Sharan Aguilar MD at 17:33 EST ,
[2023-04-07 14:56] LABS: CREATININE FINGERSTICK 1.1 mg/dL (0.70-1.30); EGFR FINGERSTICK > 60.0000 mL/min (>60)
== END | disposition home or self-care (01) ==
LOC: CT 14:27
PROVIDERS: PCP Internal Medicine; Referring Provider Physician Assistant; Visit Provider Physician Assistant
DX: I65.22 Occlusion and stenosis of left carotid artery (principal); I24.0 Acute coronary thrombosis not resulting in myocardial infarction
CPT/HCPCS: 70496; 70498; Q9967

== ENCOUNTER → 2023-10-07 | Outpatient (CLI) | payer MEDICARE, SELFPAY ==
--- NOTE | 2023-10-07 13:06 | CDU_ITS ---
Reason For Study: GARY OCCLUSION, LICA STENOSIS Rt. Velocities/BP Lt. Velocities/BP Prox CCA 51.6/4.3 cm/sec. Prox CCA 123.5/34.0 cm/sec. Mid CCA 64.8/8.1 cm/sec. Mid CCA 158.2/37.6 cm/sec. Dist CCA 59.1/8.1 cm/sec. Dist CCA 172.5/34.2 cm/sec. KNOWN ICA OCCLUSION. Prox ICA 168.2/33.4 cm/sec. Prox ECA 151.2/8.6 cm/sec. Mid ICA 244.4/31.0 cm/sec. Rt. Vert. 50.2/12.2 cm/sec. Dist ICA 129.3/41.5 cm/sec. Lt. ICA/CCA = 244.4/158.2=1.5. Prox ECA 185.6/17.1 cm/sec. Lt. Vert. 76.0/20.8 cm/sec. Right Extracranial There is homogeneous, smooth atherosclerotic plaque noted in the right common carotid artery. The right internal carotid artery is occluded. There is heterogeneous, irregular atherosclerotic plaque noted in the right external carotid artery. Antegrade flow is noted in the right vertebral artery. Left Extracranial There is homogeneous, smooth atherosclerotic plaque noted in the left common carotid artery. There is heterogeneous, irregular atherosclerotic plaque noted in the left internal carotid artery. There is heterogeneous, irregular atherosclerotic plaque noted in the left external carotid artery. Antegrade flow is noted in the left vertebral artery. Procedure Carotid Duplex [id number]. This is a Carotid Duplex examination using B-mode, color flow and specral Doppler. Exam performed in department. VL/Carotid Duplex Ultrasound Interpretation Summary Occlusion of the right extracranial internal carotid. Severe (>70%) stenosis left extracranial internal carotid. Patent and antegrade vertebrals bilaterally. Ordering Physician: Prachi Rogers Referring Physician: John, Katarina Performed By: Kelli Hannah RDCS, RVT
== END | disposition home or self-care (01) ==
PROVIDERS: PCP Internal Medicine; Referring Provider Physician Assistant; Visit Provider Physician Assistant
DX: I65.23 Occlusion and stenosis of bilateral carotid arteries (principal)
CPT/HCPCS: 93880

== ENCOUNTER → 2024-01-12 | Outpatient (CLI) | payer MEDICARE, SELFPAY ==
--- NOTE | 2024-01-12 14:08 | BD_ITS ---
STUDY: DUAL ENERGY X-RAY ABSORPTIOMETRY / DXA REASON FOR EXAM: Male, 78 years old. M810 -- Ashlee pro sis TECHNIQUE: Bone Mineral Density (BMD) measurements of lumbar spine and bilateral hips were obtained. COMPARISON: Comparison is made with prior examination dated November 04, 2020. FINDINGS: Lumbar Spine (L1-L4): g/cm2 (0.842) / T-score (-1.9) / Z-score (-0.8) Findings are suggestive of osteopenia with a moderate fracture risk. Left Femur Total: g/cm2 (0.816) / T-score (-1.4) / Z-score (-0.4) Left Femoral Neck: g/cm2 (0.568) / T-score (-2.7) / Z-score (-1.2) Right Femur Total: g/cm2 (0.713) / T-score (-2.1) / Z-score (-1.1) Right Femoral Neck: g/cm2 (0.531) / T-score (-2.9) / Z-score (-1.4) The T-Scores on the most recent prior examination were: Lumbar Spine (L1-L4): There has been worsening of bone density since the previous examination. Left Femur Total: which represents a worsening of 3.7%. Right Femur Total: which represents a worsening of 4.9%. BD/Dexa Bone Density Study IMPRESSION: The patient is considered osteoporotic as outlined below according to World Pop Organization (WHO) criteria with a high fracture risk. There has been worsening of bone density since the previous examination. Reference Information: The T-score is the number of standard deviations above or below the standard which is normal for young adults at their peak bone mineral density. The World Health Organization (WHO) interprets the T-scores as follows: Above -1 Normal bone density Between -1 and -2.5 Osteopenia Equal to / or below -2.5 Osteoporosis As a practical clinical guideline, osteopenia may be graded as follows: Mild -1 through -1.5 Moderate -1.6 through -2.0 Severe -2.1 through -2.4 The Z-score is the number of standard deviations above or below age-matched controls. A Z-score of less than -1.5 would be considered abnormal. References: 1. NIH Osteoporosis and Related Bone Diseases www osteo.org 2. International Society for Clinical Densitometry www iscd.org 3. National Osteoporosis Foundation www nof.org Electronically Signed: Christiano Ramsey MD at 15:28 EDT ,
== END | disposition home or self-care (01) ==
LOC: OPBD 14:05
PROVIDERS: PCP Internal Medicine; Referring Provider Internal Medicine; Visit Provider Internal Medicine
DX: M81.0 Age-related osteoporosis without current pathological fracture (principal)
CPT/HCPCS: 77080

== ENCOUNTER → 2024-04-09 | Outpatient (CLI) | payer MEDICARE, SELFPAY ==
--- NOTE | 2024-04-09 15:07 | CDU_ITS ---
Reason For Study: Rt ICA Occlusion / Lt ICA Stenosis Rt. Velocities/BP Lt. Velocities/BP Prox CCA 44.3/9.2 cm/sec. Prox CCA 110.7/32.1 cm/sec. Mid CCA 83.9/13.6 cm/sec. Mid CCA 116.2/43.1 cm/sec. Dist CCA 40.8/4.9 cm/sec. Dist CCA 105.2/37.8 cm/sec. Prox ICA 19.1/0.0 cm/sec. Prox ICA 249.5/80.8 cm/sec. Mid / Dist ICA appear occluded. Mid ICA 155.4/14.1 cm/sec. Prox ECA 201.1/14.5 cm/sec. Dist ICA 88.3/29.5 cm/sec. Rt. Vert. 46.2/13.0 cm/sec. Lt. ICA/CCA = 2.2. Prox ECA 114.9/0.0 cm/sec. Lt. Vert. 48.7/21.4 cm/sec. Right Extracranial There is homogeneous, smooth atherosclerotic plaque noted in the right common carotid artery. There is heterogeneous, irregular atherosclerotic plaque noted in the right internal carotid artery. The right internal carotid artery is occluded. There is heterogeneous, irregular atherosclerotic plaque noted in the right external carotid artery. Antegrade flow is noted in the right vertebral artery. Left Extracranial There is heterogeneous, smooth atherosclerotic plaque noted in the left common carotid artery. There is heterogeneous, irregular atherosclerotic plaque noted in the left internal carotid artery. There is heterogeneous, irregular atherosclerotic plaque noted in the left external carotid artery. Antegrade flow is noted in the left vertebral artery. Procedure Carotid Duplex [id number]. This is a Carotid Duplex examination using B-mode, color flow and specral Doppler. The exam was diagnostic. Exam performed in department. VL/Carotid Duplex Ultrasound Interpretation Summary Occlusion of the right extracranial internal carotid. Severe (>70%) stenosis left extracranial internal carotid. Patent and antegrade vertebrals bilaterally. Ordering Physician: Prachi Rogers Referring Physician: Katarina Lopez M.D. Performed By: Valeriy Collins RVT
== END | disposition home or self-care (01) ==
LOC: CVS 15:03
PROVIDERS: PCP Internal Medicine; Referring Provider Physician Assistant; Visit Provider Physician Assistant
DX: I65.23 Occlusion and stenosis of bilateral carotid arteries (principal)
CPT/HCPCS: 93880

== ENCOUNTER 2024-05-26 17:01 | Emergency (ER) | payer MEDICARE, SELFPAY ==
[2024-05-26] VITALS (8 sets, daily range): BP systolic 144–149; BP diastolic 59–83; PULSE 59–71; RESP 15–22; TEMP 36.2–36.7; O2SAT 94–98; BMI 25.9
--- NOTE | 2024-05-26 17:24 | EKG12_ITS ---
Test Reason : sob Blood Pressure : */* mmHG Vent. Rate : 63 BPM Atrial Rate : 63 BPM P-R Int : 194 ms QRS Dur : 94 ms QT Int : 458 ms P-R-T Axes : 84 40 44 degrees QTcB Int : 468 ms Normal sinus rhythm Normal ECG Confirmed by Tay Nix ([id number]), medical transcription editor ISABEL BASHIR ([id number]) on 05/28/2024 10:58:18 AM Referred By: Confirmed By: Tay Nix
--- NOTE | 2024-05-26 17:25 | ED.VIS.DYS ---
HPI History of Present Illness Chief Complaint: Shortness of Breath Detail of Chief Complaint: Shortness of breath Informant: patient and spouse/S.O. Narrative Narrative: Patient presents with shortness of breath that started severely 3 days ago. Patient tells me that initially saw his primary care physician little over a week ago for a cough and at that time started on Z-Sanford as well as steroids. He thought he was getting better until 3 days ago he started having severe shortness of breath. Continues to cough and bring up some white to clear phlegm. Denies fever. He denies chest pain. He has chronic lower extremity edema. Denies recent travel or surgery. Patient states he cannot lay flat because he cannot breathe. No history of CHF. He does have history of coronary artery disease. He has had a prior stent. [facility] Medical History Macular degeneration History of acute inferior wall [place] (02/07/14) Hyperlipidemia Nicotine dependence, cigarettes, uncomplicated Atherosclerosis of [place] coronary artery of [place] heart without angina pectoris Other vermin exterminator (current) drug therapy Hypertension Atypical chest pain Home Medications ?Medication ?Instructions ?Recorded ?Last Taken ?Type cholecalciferol (vitamin D3) 50 2,000 unit PO DAILY Vitamin 12/23/16 02/14/19 History mcg (2,000 unit) capsule cyanocobalamin (vitamin B-12) 500 500 mcg PO DAILY Vitamin 12/23/16 02/14/19 History mcg tablet nitroglycerin 0.4 mg sublingual 0.4 mg sublingual Q5M PRN Chest 01/09/19 02/14/19 Rx tablet Pain #25 tabs albuterol sulfate 90 mcg/actuation 1 inh inhalation Q6H PRN 04/02/20 Unknown History aerosol inhaler umeclidinium 62.5 mcg-vilanterol 1 inh inhalation DAILY PRN 04/02/20 Unknown History 25 mcg/actuation powdr for inhalation atorvastatin 80 mg tablet 80 mg PO QHS Pt trying to sync 09/29/22 Unknown Rx meds to get all at once #90 tabs clopidogrel 75 mg tablet 75 mg PO DAILY Pt trying to sync 09/29/22 Unknown Rx meds to get all at once #90 tabs pantoprazole 40 mg tablet,delayed 40 mg PO DAILY Pt trying to sync 09/29/22 Unknown Rx release meds to get all at once #90 tabs propranolol 10 mg tablet 10 mg PO BID Pt trying to sync 09/29/22 Unknown Rx meds to get all at once #180 tabs vit C 250 mg-vit E 90 mg-zinc 40 1 tab PO BID VITAMIN 06/10/23 Unknown History mg-copper 1 uo-tipfei-esdbji capsule aspirin 81 mg tablet,delayed 81 mg PO DAILY Heart #90 tabs 02/02/24 Unknown Rx release lisinopril 10 1 tab PO QDAY ordered by Dr. Lopez 05/17/24 Unknown History mg-hydrochlorothiazide 12.5 mg tablet ipratropium 0.5 mg-albuterol 3 mg 3 ml inhalation Q4H PRN wheezing 05/26/24 Unknown Rx (2.5 mg base)/3 mL nebulization #90 mL soln Allergy/AdvReac Type Severity Reaction Status Date / Time bee venom protein (honey bee) Allergy Severe Anaphylaxis Verified 05/26/24 17:07 morphine Allergy Severe Other Verified 05/26/24 17:07 oxycodone HCl (From Allergy Severe Vomiting Verified 05/26/24 17:07 OxyContin) pollen extracts Allergy Other Verified 05/26/24 17:07 Family History Mother CAD (coronary artery disease) Surgical History Stented coronary artery S/P thoracotomy History of percutaneous transluminal coronary angioplasty (01/12/17) Status post angioplasty with stent Social History Smoking Status: Former smoker alcohol intake: former year quit: 1997 substance use type: does not use caffeine: Yes Type: coffee Number of servings: 5 ROS ROS ED Review of Systems ROS Unobtainable: other Constitutional Constitutional ED: Reports lethargy; Denies chills, fever(s), sweats or weight loss Eyes Eyes: Denies blurry vision, change in vision or diplopia ENT ENT ED: Denies rhinorrhea or sore throat Cardiovascular Cardiovascular: Reports orthopnea; Denies chest pain or racing heartbeat Respiratory/Chest Respiratory/Chest: Reports cough, dyspnea, dyspnea on exertion and orthopnea; Denies sputum Gastrointestinal Gastrointestinal: Denies abdominal pain, diarrhea, nausea or vomiting Genitourinary Genitourinary ED: Denies dysuria, hematuria or urinary frequency Musculoskeletal Musculoskeletal: Denies arthralgias, back pain, myalgias or neck pain Integumentary Denies abscess, Abrasions or rash Neurologic Neurologic: Denies headache(s) or weakness Psychiatric Psychiatric: Denies anxiety, depression or suicidal thoughts Endocrine Endocrinology: Denies polydipsia, polyphagia or polyuria Hematologic/Lymphatic Hematologic/Lymphatic: Denies easy bleeding, easy bruising or lymphadenopathy Allergic/Immunologic Allergic/Immunologic ED: Denies mouth swelling, tongue swelling or urticaria EXAM Physical Exam Const Vital Signs: 05/26/24 17:03 05/26/24 17:05 05/26/24 17:49 Temperature 97.2 F L 97.2 F L Temperature Source Temporal Temporal Pulse Rate 63 61 Respiratory Rate 15 17 Respiratory Effort Respiratory Depth Respiratory Pattern Blood Pressure 149/83 H 149/83 H Blood Pressure Mean 105 105 Pulse Ox 94 94 Oxygen Delivery Method Room Air Room Air Room Air 05/26/24 17:50 05/26/24 17:51 05/26/24 18:05 Temperature 98.1 F Temperature Source Oral Pulse Rate 65 59 L Respiratory Rate 22 H 18 Respiratory Effort Normal Respiratory Depth Normal Respiratory Pattern Tachypnea Normal Blood Pressure 149/59 H Blood Pressure Mean 89 Pulse Ox 97 Oxygen Delivery Method Room Air Room Air 05/26/24 19:00 05/26/24 19:02 Temperature 98.1 F Temperature Source Oral Pulse Rate 59 L 71 Respiratory Rate 18 18 Respiratory Effort Respiratory Depth Respiratory Pattern Blood Pressure 144/65 H Blood Pressure Mean 91 Pulse Ox 95 98 Oxygen Delivery Method Room Air Positive well nourished and well developed General Appearance ED: well developed and NAD HEENT Reports TM's clear and moist mucous membranes normocephalic and atraumatic; Negative for trauma or tenderness Tympanic Membrane ED: Yes TM's clear Eyes PERRL and EOMs intact bilaterally General Eye ED: Negative for pale conjunctiva or scleral icterus Neck no lymphadenopathy, supple and no JVD General: Negative for tenderness Chest Wall inspection of chest normal and palpation of chest normal Chest: Negative for tenderness Resp normal respiratory effort and clear to auscultation bilaterally Resp Narrative: Decreased breath sounds bilaterally with faint wheezes throughout. Effort and Inspection: Negative for respiratory distress or pain with movement Auscultation: Negative for rhonchi, wheezes or diminished lung sounds Cardio regular rate, regular rhythm, S1 normal heart sound, S2 normal heart sound and no murmurs Peripheral Pulses: pulses 2+ throughout GI normal to inspection, nondistended, normoactive bowel sounds, soft to palpation, non-tender, non-distended and no masses Back/Spine no CVA tenderness and no thoracic nor lumbar tenderness Extremity normal to inspection General Extremety ED: Negative for edema General Extremity: Negative for edema Neuro oriented x3, CN's II-XII intact bilaterally, no sensory deficits noted and gait normal Sensorium / Orientation: awake, alert, oriented to person, oriented to place and oriented to time Motor Exam: strength 5/5 throughout and strength abnormal Psych mental status grossly normal Skin no rashes or lesions noted and no wounds MDM MDM MDM Narrative Medical decision making narrative: Patient with cough and difficulty breathing. Currently on steroids and had a course of Zithromax recently. Does have wheezing on exam and history of COPD. He has been using his albuterol nebulizer at home but not get much relief. In the differential would be CHF as well as pneumonia or viral infection. PE would be less likely. IV line established. EKG obtained on arrival showed a sinus rhythm with rate of 63 bpm with no acute ST segment changes. CBC with differential showed a white count 6.7 with hemoglobin 14.2 and platelet count of 219. Chemistries unremarkable. Troponin was normal at 18. BT MACHINE TENDER was normal at 582. D-dimer normal at 0.46. 1 view chest x-ray showed maybe a small pleural effusion right lower lobe. COVID flu and RSV testing positive for RSV. Patient while in the department received DuoNeb aerosol and he had marked improvement in his symptomatology and breathing. At this point I feel he can be safely discharged to home. He is to continue with his prednisone. Will order DuoNeb aerosols for home. Lab Data Attestation: I reviewed the patient's lab results. Labs: Laboratory Results - last 24 hr 05/26/24 05/26/24 17:35 18:38 WBC 6.7 RBC 4.30 L Hgb 14.2 Hct 42.0 MCV 97.7 H MCH 33.0 H MCHC 33.8 RDW Std Deviation 50.2 H RDW Coeff of [place]by 13.8 Plt Count 219 MPV 10.0 Immature Gran % (Auto) 0.300 Neut % (Auto) 76.9 H Lymph % (Auto) 10.2 L [place] % (Auto) 11.7 H Eos % (Auto) 0.3 Baso % (Auto) 0.6 Absolute Neuts (auto) 5.1 Absolute Lymphs (auto) 0.68 L Nucleated RBC % 0 D-Dimer Quant (PE/DVT) 0.46 Sodium 140 Potassium 4.1 Chloride 103 Carbon Dioxide 24.6 Anion Gap 13 BUN 24 H Creatinine 1.20 Estim Creat Clear Calc 49.92 L Est GFR (MDRD) Non-Af 62 BUN/Creatinine Ratio 20.1 H Glucose 111 H Calcium 9.4 Troponin T High Sens 18 NT pro BNP II 582 Radiography Diagnostic Testing: Clinical Impression(s) from Imaging Studies Chest X-Ray 05/26/24 17:55 IMPRESSION: Small right basilar effusion/atelectasis. Reading Location: [facility] 1 view chest x-ray obtained interpreted by myself as small right pleural effusion without evidence of pneumothorax or infiltrate or other acute process. Radiology in agreement. EKG Initial EKG: Attestation: I personally reviewed and interpreted this EKG as follows: Comments: Sinus rhythm with ventricular rate of 63 bpm with no acute ST segment changes Discharge Plan Triage Chief Complaint: Shortness of Breath ED Provider: Priscilla Delgado Dx/Rx/DC Orders Clinical Impression: RSV infection, Dyspnea, Reactive airway disease with wheezing Instructions: RSV (Respiratory Syncytial Virus), ED COPD Flare, ED Dyspnea Prescriptions: New ipratropium-albuterol 0.5 mg-3 mg(2.5 mg base)/3 mL solution for nebulization 3 ml inhalation Q4H PRN (Reason: wheezing) Qty: 90 0RF Rx Instructions: until breathing returns to target peak flow/parameters No Action umeclidinium-vilanterol 62.5-25 mcg/actuation blister with device 1 inh INHALATION DAILY PRN Patient Comments: use 1 (ONE) inhalation DAILY albuterol sulfate 90 mcg/actuation HFA aerosol inhaler 1 inh INHALATION Q6H PRN Patient Comments: USE 1 (ONE) INHALATION EVERY 6 HOURS NEEDED aspirin 81 mg tablet,delayed release (DR/EC) 81 mg PO DAILY Qty: 90 3RF cyanocobalamin (vitamin B-12) 500 MCG tablet 500 mcg PO DAILY cholecalciferol (vitamin D3) 2,000 UNIT capsule 2,000 unit PO DAILY vit C,L-Fe-ksqwi-lutein-zeaxan 250-90-40-1 mg capsule 1 tab PO BID nitroglycerin 0.4 mg tablet, sublingual 0.4 mg SUBLINGUAL Q5M PRN (Reason: Chest Pain) Qty: 25 3RF atorvastatin 80 mg tablet 80 mg PO QHS Qty: 90 3RF pantoprazole 40 mg tablet,delayed release (DR/EC) 40 mg PO DAILY Qty: 90 3RF clopidogrel 75 mg tablet 75 mg PO DAILY Qty: 90 3RF propranolol 10 mg tablet 10 mg PO BID Qty: 180 3RF lisinopril-hydrochlorothiazide 10-12.5 mg tablet 1 tab PO QDAY Primary Care Provider: Katarina Lopez Referrals: Katarina Lopez DO [Primary Care Provider] - Print Language: Bulgarian Disposition Disposition: Home, Self Care
[2024-05-26 17:45] LABS: Absolute Lymphocyte Count 0.68 X10^3/uL (0.83-4.51); Absolute Neutrophil Count 5.1 X10^3/uL (2.0-7.7); Basophil# 0.04 X10^3/uL; Basophil% 0.6 % (0-1); Eosinophil# 0.02 X10^3/uL; Eosinophils% 0.3 % (0-5); Hemoglobin 14.2 g/dL (13.0-16.5); Lymphocyte # 0.68 X10^3/ul (0.83-4.51); Lymphocyte % 10.2 % (19-41); Mean Corp Hgb Conc 33.8 g/dL (32-36); Mean Corpuscular Volume 97.7 fL (80-94); Monocyte# 0.78 X10^3/uL; Monocyte% 11.7 % (0-10); NRBC Flagged by Analyzer 0 % (0-5); Neutrophil # 5.14 X10^3/uL (2.7-7.7); Neutrophil % 76.9 % (47-70); Platelet Count 219 K/mm3 (150-450); RBC Distribution Width CV 13.8 % (11.6-14.6); RBC Distribution Width SD 50.2 fl (35.1-43.9); White Blood Count 6.7 K/mm3 (4.4-11.0)
[2024-05-26] MEDS: Ipratropium/Albuterol Sulfate 3 ML AMPUL.NEB INHALATION (17:49)
--- NOTE | 2024-05-26 17:55 | RAD_ITS ---
PROCEDURE: CHEST 1 VIEW (PORTABLE) REASON FOR EXAM: Dyspnea TECHNIQUE: Frontal view of the chest. COMPARISON: Chest radiograph dated 01/31/2023 FINDINGS: The heart size is normal. Small right basilar effusion/atelectasis. No pneumothorax. Mild scoliosis of the thoracolumbar spine. RAD/Chest 1 View (Portable) IMPRESSION: Small right basilar effusion/atelectasis. Reading Location: [facility]
[2024-05-26 18:03] LABS: Anion Gap 13 (5-15); BUN 24 mg/dL (4-19); BUN/Creat Ratio 20.1 RATIO (10-20); Calcium,Total 9.4 mg/dL (7.6-11.0); Carbon Dioxide 24.6 mmol/L (21.0-32.0); Chloride 103 mmol/L (98-108); EST Glomerular Filtration Rate 62 (>60); Estimated Creatinine Clearance 49.92 ml/min (50-250); Glucose 111 mg/dL (70-99); Potassium 4.1 mmol/L (3.3-5.1); Pro- Brain NATRIURETIC PEPTIDE 582 pg/mL (<=1800); Sodium Level 140 mmol/L (133-145); Troponin T High Sensitivity 18 ng/L (<=22)
[2024-05-26 19:05] LABS: D-Dimer Quantitative (DVT/PE) 0.46 FEU/ug/m (0.27-0.49)
== END 2024-05-26 19:45 | disposition home or self-care (01) ==
PROVIDERS: Emergency Provider Emergency Medicine; PCP Internal Medicine; Visit Provider Emergency Medicine
DX: R06.00 Dyspnea, unspecified (principal); J44.9 Chronic obstructive pulmonary disease, unspecified; I25.10 Atherosclerotic heart disease of native coronary artery without angina pectoris; I10 Essential (primary) hypertension; B97.4 Respiratory syncytial virus as the cause of diseases classified elsewhere; E78.5 Hyperlipidemia, unspecified; Z87.891 Personal history of nicotine dependence; I25.2 Old myocardial infarction; Z79.899 Other long term (current) drug therapy; Z79.02 Long term (current) use of antithrombotics/antiplatelets; Z79.82 Long term (current) use of aspirin; Z95.5 Presence of coronary angioplasty implant and graft; R06.2 Wheezing
CPT/HCPCS: 71045; 80048; 83880; 84484; 85025; 85379; 87040; 87631; 93005; 94640; 99284; A4216

== ENCOUNTER → 2024-09-26 | Outpatient (CLI) | payer MEDICARE, SELFPAY ==
--- NOTE | 2024-09-26 13:11 | CDU_ITS ---
Reason For Study Reason For Study: Rt ICA occlusion/Lt ICA stenosis Rt. Velocities/BP Lt. Velocities/BP Prox CCA 51.3/6 cm/sec. Prox CCA 115.8/33.5 cm/sec. Mid CCA 66.4/6.9 cm/sec. Mid CCA 115.6/37.1 cm/sec. Dist CCA 59.7/5 cm/sec. Dist CCA 115.6/27.9 cm/sec. Prox ICA 21.8 cm/sec. Prox ICA 322.9/107.1 cm/sec. ICA mid-distal is Occluded. Mid ICA 144.5/54.6 cm/sec. Prox ECA 154.3/7.2 cm/sec. Dist ICA 99.8/39.1 cm/sec. Rt. Vert. 63.1/13.3 cm/sec. Lt. ICA/CCA = 2.79. Prox ECA 130.2/6 cm/sec. Lt. Vert. 80.6/17.3 cm/sec. Right Extracranial There is homogeneous, smooth atherosclerotic plaque noted in the right common carotid artery. There is heterogeneous, irregular atherosclerotic plaque noted in the right internal carotid artery. The right internal carotid artery is occluded. There is heterogeneous, irregular atherosclerotic plaque noted in the right external carotid artery. Antegrade flow is noted in the right vertebral artery. Left Extracranial There is homogeneous, smooth atherosclerotic plaque noted in the left common carotid artery. There is heterogeneous, irregular atherosclerotic plaque noted in the left internal carotid artery. There is heterogeneous, irregular atherosclerotic plaque noted in the left external carotid artery. Antegrade flow is noted in the left vertebral artery. Procedure Carotid Duplex 13620. This is a Carotid Duplex examination using B-mode, color flow and specral Doppler. Exam performed in department. VL/Carotid Duplex Ultrasound Interpretation Summary Occlusion of the right extracranial internal carotid. Severe (>70%) stenosis left extracranial internal carotid. Patent and antegrade vertebrals bilaterally. Ordering Physician: Prachi Rogers Referring Physician: Katarina Lopez M.D. Performed By: Deb Glez RVT
== END | disposition home or self-care (01) ==
LOC: CVS 13:06
PROVIDERS: PCP Internal Medicine; Referring Provider Physician Assistant; Visit Provider Physician Assistant
DX: I65.22 Occlusion and stenosis of left carotid artery (principal)
CPT/HCPCS: 93880

== ENCOUNTER 2024-10-23 16:56 | Outpatient (CLI) | payer MEDICARE, SELFPAY ==
--- NOTE | 2024-10-23 16:57 | CT_ITS ---
PROCEDURE: CTA HEAD AND NECK W/ CONTRAST 10/23/2024 REASON FOR EXAM: SEVERE L ICA STENOSIS, R ICA OCCLUSION TECHNIQUE: CTA HEAD AND NECK W/ CONTRAST Multiplanar Sagittal and Coronal images were obtained. CONTRAST: Isovue 370 VOLUME: 100 mL One or more dose reduction techniques were used (e.g., Automated exposure control, adjustment of the mA and/or kV according to patient size, use of iterative reconstruction technique). RADIATION DOSE SUMMARY: CTDlvol: 22.5 mGy DLP: 1723.17 mGycm COMPARISON: Prior study dated April 07, 2023. FINDINGS: Aortic Arch: Normal size and branching pattern. Mild atherosclerotic plaque. Brachiocephalic and Subclavians: Mild atherosclerotic plaque without significant stenosis. RIGHT Carotid: Right CCA: Unremarkable. Right ICA: Occluded at its origin Maximum stenosis (NASCET): Internal carotid artery is occluded at its origin. Right ECA: Unremarkable. LEFT Carotid: Left CCA: Unremarkable. Left ICA: Moderate calcified and soft plaque. Maximum stenosis (NASCET): > 80 % Left ECA: Unremarkable. Vertebrals: Codominant. Arise from the subclavians. Both vertebrals form the basilar. RIGHT Vertebral: LEFT Vertebral: Anatomy: [place] anatomy is normal. Aneurysm or avm: Once again, there is absent flow in the right petrous carotid artery. Absent flow of the right cavernous carotid artery. Normal left cavernous carotid artery as well as the left petrous carotid artery. There is reconstitution of the right middle cerebral artery and anterior cerebral artery from the left cavernous carotid artery. Major venous structures: Unremarkable. 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 High-grade stenosis at the origin of the left internal carotid artery. Reading Location: [id number]
--- NOTE | 2024-10-23 16:57 | CT_ITS ---
PROCEDURE: LOW DOSE CT LUNG SCREENING 10/23/2024 REASON FOR EXAM: TOBACCO USE, IN REMISSION Former smoker. Patient has smoked 3 packs per day for 50 years. TECHNIQUE: LOW DOSE CT LUNG SCREENING Coronal and Sagittal reconstruction series were provided. One or more dose reduction techniques were used (e.g., Automated exposure control, adjustment of the mA and/or kV according to patient size, use of iterative reconstruction technique). REFERENCE LINK: [employer] Lung-RADS RADIATION DOSE SUMMARY: CTDlvol: 3.02 mGy DLP: 103.82 mGycm COMPARISON: None FINDINGS: PULMONARY NODULES: (Only nodules >3mm are reported) Nodules described below are on series 1 unless otherwise specified. Pulmonary Nodules: No suspicious nodules are seen. Hardware:None Lymph Nodes:No significant lymph nodes are seen. Heart and Vasculature:Heart size is within normal limits. Minimal anterior pericardial thickening. Atherosclerotic calcifications of the thoracic aorta. Thoracic aorta and pulmonary arteries have normal contours; noncontrast technique limits evaluation. Coronary Artery Calcifications: Present Lungs and Airways: Mild emphysematous changes are present. Pleura:No pleural effusion. Upper Abdomen:Unremarkable Bones:Degenerative changes of the thoracic spine. CT/Low Dose CT Lung Screening IMPRESSION: No suspicious nodules are present. Coronary artery calcification (CAC) is is present Lung-RADS Category: 2 BENIGN (BASED ON IMAGING FEATURES OR INDOLENT BEHAVIOR). RECOMMEND 12-MONTH SCREENING LDCT. Other Significant Findings: Reading Location: [id number]
== END 2024-10-23 23:59 | disposition home or self-care (01) ==
LOC: CT 16:56
PROVIDERS: PCP Internal Medicine; Referring Provider Physician Assistant; Visit Provider Internal Medicine
DX: I65.23 Occlusion and stenosis of bilateral carotid arteries (principal); F17.210 Nicotine dependence, cigarettes, uncomplicated
CPT/HCPCS: 70496; 70498; 71271; Q9967

== ENCOUNTER 2024-12-22 21:17 | Emergency (ER) | payer MEDICARE, SELFPAY ==
[2024-12-22 21:18] VITALS: BP 140/63; PULSE 101; RESP 16; TEMP 36.6; O2SAT 93; BMI 23.7
--- NOTE | 2024-12-22 22:05 | EKG12_ITS ---
Test Reason : DYSRHYTHMIA Blood Pressure : */* mmHG Vent. Rate : 60 BPM Atrial Rate : 60 BPM P-R Int : 218 ms QRS Dur : 96 ms QT Int : 450 ms P-R-T Axes : 89 51 27 degrees QTcB Int : 450 ms Sinus rhythm with 1st degree A-V block Otherwise normal ECG Confirmed by ELISHA WALKER, CONSTANZA ([id number]), newspaper editor ISABEL BASHIR ([id number]) on 12/24/2024 8:34:12 AM Referred By: Confirmed By: CONSTANZA TELLO MD
--- NOTE | 2024-12-22 22:06 | EX.ED.DYSGE1 ---
HPI History of Present Illness Chief Complaint: General Illness Informant: patient and spouse/S.O. Narrative Narrative: Patient is an 79-year-old male with a history of COPD, PAD, and CAD presenting with dyspnea and productive cough. Patient is accompanied by his via cell phone who is supplementing history. - Symptoms began last Tuesday after speaking at a meeting, with onset of cough producing thick, yellowish nonbloody sputum. Describes sputum as thick and like oil, occasionally white with a green tint; denies hemoptysis. - Reports worsening symptoms by , requiring him to sleep upright in a dining room chair due to inability to lie flat. - Dyspnea occurs at rest and worsens with exertion and lying down. - reports he felt warm today; denies current fever. - Denies new lower extremity swelling; chronic swelling attributed to PAD per pt. - Has been using a home nebulizer, which provides temporary relief. Hx COPD, no home O2. - Under the care of debone processing supervisor Dr. Misael Nesbitt at [facility]. - History of remote thoracotomy following an accident that resulted in three rib fractures and removal of 2.5 liters of blood and fluid. - Has a cardiac stent and is on Plavix, aspirin, and atorvastatin. 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) Hyperlipidemia Nicotine dependence, cigarettes, uncomplicated Atherosclerosis of [place] coronary artery of [place] heart without angina pectoris Other senior living (current) drug therapy Hypertension Atypical chest pain Home Medications ?Medication ?Instructions ?Recorded ?Last Taken ?Type cholecalciferol (vitamin D3) 50 2,000 unit PO DAILY Vitamin 12/23/16 02/14/19 History mcg (2,000 unit) capsule cyanocobalamin (vitamin B-12) 500 500 mcg PO DAILY Vitamin 12/23/16 02/14/19 History mcg tablet nitroglycerin 0.4 mg sublingual 0.4 mg sublingual Q5M PRN Chest 01/09/19 02/14/19 Rx tablet Pain #25 tabs atorvastatin 80 mg tablet 80 mg PO QHS Pt trying to sync 09/29/22 Unknown Rx meds to get all at once #90 tabs clopidogrel 75 mg tablet 75 mg PO DAILY Pt trying to sync 09/29/22 Unknown Rx meds to get all at once #90 tabs pantoprazole 40 mg tablet,delayed 40 mg PO DAILY Pt trying to sync 09/29/22 Unknown Rx release meds to get all at once #90 tabs propranolol 10 mg tablet 10 mg PO BID Pt trying to sync 09/29/22 Unknown Rx meds to get all at once #180 tabs vit C 250 mg-vit E 90 mg-zinc 40 1 tab PO BID VITAMIN 06/10/23 Unknown History mg-copper 1 nn-dohzpf-etwvur capsule aspirin 81 mg tablet,delayed 81 mg PO DAILY Heart #90 tabs 02/02/24 Unknown Rx release lisinopril 10 1 tab PO QDAY ordered by Dr. Lopez 05/17/24 Unknown History mg-hydrochlorothiazide 12.5 mg tablet doxycycline monohydrate 100 mg 100 mg PO BID #14 CAPSULES 12/23/24 Unknown Rx capsule prednisone 20 mg tablet 40 mg (2 x 20 mg) PO DAILY 6 days 12/23/24 Unknown Rx #12 tabs Allergy/AdvReac Type Severity Reaction Status Date / Time bee venom protein (honey bee) Allergy Severe Anaphylaxis Verified 12/22/24 21:20 morphine Allergy Severe Other Verified 12/22/24 21:20 oxycodone HCl (From Allergy Severe Vomiting Verified 12/22/24 21:20 OxyContin) pollen extracts Allergy Other Verified 12/22/24 21:20 Family History Mother CAD (coronary artery disease) Surgical History Stented coronary artery S/P thoracotomy History of percutaneous transluminal coronary angioplasty (01/12/17) Status post angioplasty with stent Social History Smoking Status: Current some day smoker tobacco type: cigarettes alcohol intake: former year quit: 1997 substance use type: does not use caffeine: Yes Type: coffee Number of servings: 5 ROS ROS ED Constitutional Constitutional ED: Reports malaise; Denies chills or fever(s) Eyes Eyes: Denies change in vision or diplopia ENT ENT ED: Reports nasal congestion and rhinorrhea; Denies headache(s) or sore throat Cardiovascular Cardiovascular: Reports leg edema and orthopnea; Denies chest pain, palpitations or paroxysmal nocturnal dyspnea Respiratory/Chest Respiratory/Chest: Reports cough, dyspnea, dyspnea on exertion, orthopnea and sputum; Denies paroxysmal nocturnal dyspnea Gastrointestinal Gastrointestinal: Denies abdominal pain, diarrhea, nausea or vomiting Genitourinary Genitourinary ED: Denies dysuria or hematuria Musculoskeletal Musculoskeletal: Denies back pain or neck pain Integumentary Denies abscess or rash Neurologic Neurologic: Denies headache(s), paresthesias or weakness Psychiatric Psychiatric: Denies anxiety or suicidal thoughts EXAM Physical Exam Const Vital Signs: 12/22/24 21:18 12/22/24 21:43 12/22/24 22:09 Temperature 98 F Temperature Source Oral Pulse Rate 101 H Respiratory Rate 16 Respiratory Effort Normal Non-Labored Respiratory Pattern Normal Blood Pressure 140/63 H Blood Pressure Mean 88 Pulse Ox 93 Oxygen Delivery Method Room Air Room Air 12/22/24 22:26 12/22/24 23:15 Temperature Temperature Source Pulse Rate 60 59 L Respiratory Rate 18 18 Respiratory Effort Respiratory Pattern Normal Blood Pressure 134/75 H Blood Pressure Mean 93 Pulse Ox 96 Oxygen Delivery Method Positive well nourished and well developed General Appearance ED: well developed and NAD HEENT Reports moist mucous membranes normocephalic and atraumatic Eyes PERRL and EOMs intact bilaterally Neck full ROM, supple and no JVD Resp normal respiratory effort Resp Narrative: Conversive in full sentences. Diffuse expiratory wheezes, equal breath sounds bilaterally, no rales or rhonchi, trachea midline. Frequent bronchospasm. Occasional yellow nonbloody sputum production. Cardio regular rate, regular rhythm and no murmurs GI non-tender and non-distended Auscultation: normoactive bowel sounds Palpation: soft Back/Spine no CVA tenderness General Back: other FROM Extremity normal to inspection General Extremety ED: Yes edema; Negative for pulses abnormal or tenderness General Extremity: edema bilateral lower extremity Details: moderate; Negative for pulses abnormal Neuro oriented x3, CN's II-XII intact bilaterally and no sensory deficits noted Sensorium / Orientation: awake and alert Motor Exam: strength 5/5 throughout Psych mental status grossly normal Skin no rashes or lesions noted and no wounds MDM MDM MDM Narrative Medical decision making narrative: Patient coughing up yellow sputum and wheezing that is worse with exertion and better with nebulizer treatments, this is likely to be COPD exacerbation, with or without pneumonia, with or without influenza/COVID/other viral etiology, but with his orthopnea and chronic leg edema and lack of a history of an echocardiogram, evaluating him for congestive heart failure and acute coronary syndrome as well. Will give him a nebulizer treatment in the meantime for his wheezing. Two-view chest x-ray, in my interpretation, shows no evidence of acute pneumonia but does demonstrate hyperexpansion consistent with a COPD pattern. Radiology concurs with these findings. His EKG shows no acute injury pattern or dysrhythmia. Troponin measurements are within normal limits, and his proBNP is 394, which is also within normal limits, indicating no acute decompensated congestive heart failure. He has mild renal insufficiency, though not severe enough to warrant admission or adjustment of antibiotic dosing, and he does not have significant leukocytosis. After a nebulizer treatment, he reports feeling better and declines a second treatment session. He was ambulated without becoming hypoxic. I offered hospital admission, but he declined and is amenable to discharge, which appears safe. His presentation is consistent with viral bronchitis resulting in a COPD exacerbation. We will treat him with steroids, starting with Solu-Medrol, and add doxycycline for pneumonia prophylaxis. I advised outpatient follow-up with his primary care provider or debone processing supervisor after the weekend. He is comfortable with this plan. History & Record Review Additional record(s) reviewed:: Other (no prior echo) Lab Data Attestation: I reviewed the patient's lab results. Labs: Laboratory Results - last 24 hr 12/22/24 12/22/24 21:44 23:48 WBC 7.8 RBC 4.20 L Hgb 13.7 Hct 41.2 MCV 98.1 H MCH 32.6 H MCHC 33.3 RDW Std Deviation 48.7 H RDW Coeff of Abby 13.4 Plt Count 192 MPV 10.5 Immature Gran % (Auto) 0.300 Neut % (Auto) 62.0 Lymph % (Auto) 20.1 [place]ruff % (Auto) 15.2 H Eos % (Auto) 1.8 Baso % (Auto) 0.6 Absolute Neuts (auto) 4.8 Absolute Lymphs (auto) 1.56 Nucleated RBC % 0 Sodium 141 Potassium 3.8 Chloride 104 Carbon Dioxide 23.3 Anion Gap 14 BUN 26 H Creatinine 1.22 H Estim Creat Clear Calc 48.29 L Est GFR (MDRD) Non-Af 60 BUN/Creatinine Ratio 21.4 H Glucose 101 H Calcium 9.3 Troponin T High Sens 17 Troponin T Hi Sens 2 Hr 19 NT pro BNP II 394 Radiography Diagnostic Testing: Clinical Impression(s) from Imaging Studies Chest X-Ray 12/22/24 22:45 IMPRESSION: NO ACUTE FINDINGS. Reading Location: [facility] Rhythm Strip Rhythm Strip: Sinus Rhythm Rate: 90 Ectopy: None EKG Initial EKG: Attestation: I personally reviewed and interpreted this EKG as follows: Interpretation: Sinus Rhythm, No Acute Injury Pattern and AV Block (First-degree) Comments: Nml axis & intervals except for slightly prolonged OK; otherwise nml EKG Discharge Plan Triage Chief Complaint: General Illness ED Provider: Adebayo eDlacruz Dx/Rx/DC Orders Clinical Impression: Acute exacerbation of chronic obstructive pulmonary disease (COPD), Acute bronchitis, viral Instructions: ED COPD Flare Prescriptions: New prednisone 20 mg tablet 40 mg PO DAILY 6 Days Qty: 12 0RF doxycycline monohydrate 100 mg capsule 100 mg PO BID Qty: 14 0RF No Action aspirin 81 mg tablet,delayed release (DR/EC) 81 mg PO DAILY Qty: 90 3RF cyanocobalamin (vitamin B-12) 500 MCG tablet 500 mcg PO DAILY cholecalciferol (vitamin D3) 2,000 UNIT capsule 2,000 unit PO DAILY vit C,N-Mf-ktulk-lutein-zeaxan 250-90-40-1 mg capsule 1 tab PO BID nitroglycerin 0.4 mg tablet, sublingual 0.4 mg SUBLINGUAL Q5M PRN (Reason: Chest Pain) Qty: 25 3RF atorvastatin 80 mg tablet 80 mg PO QHS Qty: 90 3RF pantoprazole 40 mg tablet,delayed release (DR/EC) 40 mg PO DAILY Qty: 90 3RF clopidogrel 75 mg tablet 75 mg PO DAILY Qty: 90 3RF propranolol 10 mg tablet 10 mg PO BID Qty: 180 3RF lisinopril-hydrochlorothiazide 10-12.5 mg tablet 1 tab PO QDAY Primary Care Provider: Katarina Lopez Referrals: Katarina Lopez DO [Primary Care Provider, Internal Medicine] - 3-5 Days Referral Note: or your debone processing supervisor Activity Restrictions/Additional Instructions: - You received a dose of Solumedrol (a steroid) today to help treat your COPD flare-up. - Start taking the prescribed doxycycline to help prevent pneumonia. - Chest x-ray did not show pneumonia but did show changes consistent with your COPD. - Your heart tracing (EKG) and heart blood tests (troponin and proBNP) were normal. - Follow up with your primary care provider or debone processing supervisor after the weekend. Print Language: Khmer Disposition Disposition: Home, Self Care
[2024-12-22 22:21] LABS: Hematocrit 41.2 % (40-54); Hemoglobin 13.7 g/dL (13.0-16.5); Immature Granulocytes Count 0.020 X10^3/uL (0.0-0.0); Mean Corp Hgb Conc 33.3 g/dL (32-36); Mean Corpuscular Volume 98.1 fL (80-94); Mean Platelet Vol. 10.5 fl (6.2-12.0); NRBC Flagged by Analyzer 0 % (0-5); Platelet Count 192 K/mm3 (150-450); RBC Distribution Width CV 13.4 % (11.6-14.6); RBC Distribution Width SD 48.7 fl (35.1-43.9); Red Blood Count 4.20 M/mm3 (4.6-6.2); White Blood Count 7.8 K/mm3 (4.4-11.0)
[2024-12-22 22:26] VITALS: PULSE 60; RESP 18
[2024-12-22] MEDS: Albuterol 2.5 MG/3 ML VIAL.NEB. INHALATION (22:26)
--- NOTE | 2024-12-22 22:45 | RAD_ITS ---
PROCEDURE: CHEST PA AND LATERAL 12/22/2024 REASON FOR EXAM: COUGH SOB TECHNIQUE: Procedure Code: RADCXR Modality: DX Procedure: CHEST PA AND LATERAL COMPARISON: 05/26/2024 FINDINGS: Hardware: None. Heart: The heart size is normal. Mediastinum: The mediastinal contour is unremarkable. Lungs: The lungs are clear. No pneumothorax or pleural effusion. Bones: The bones are unremarkable. RAD/Chest PA and Lateral IMPRESSION: NO ACUTE FINDINGS. Reading [facility]
[2024-12-22 22:51] LABS: Pro- Brain NATRIURETIC PEPTIDE 394 pg/mL (<=1800); Troponin T High Sensitivity 17 ng/L (<=22)
[2024-12-22 22:52] LABS: Anion Gap 14 (5-15); BUN 26 mg/dL (4-19); BUN/Creat Ratio 21.4 RATIO (10-20); Calcium,Total 9.3 mg/dL (7.6-11.0); Carbon Dioxide 23.3 mmol/L (21.0-32.0); Chloride 104 mmol/L (98-108); Estimated Creatinine Clearance 48.29 ml/min (50-250); Glucose 101 mg/dL (70-99); Potassium 3.8 mmol/L (3.3-5.1)
[2024-12-22 23:15] VITALS: BP 134/75; PULSE 59; RESP 18; O2SAT 96
[2024-12-23 00:45] VITALS: O2SAT 95
[2024-12-23 00:48] LABS: Troponin T High Sens 2 HR 19 ng/L (<=22)
[2024-12-23 00:55] VITALS: BP 145/68; PULSE 65; RESP 18; TEMP 36.7; O2SAT 96
== END 2024-12-23 00:55 | disposition home or self-care (01) ==
PROVIDERS: Emergency Provider Emergency Medicine; PCP Internal Medicine; Visit Provider Emergency Medicine
DX: J44.0 Chronic obstructive pulmonary disease with (acute) lower respiratory infection (principal); J44.1 Chronic obstructive pulmonary disease with (acute) exacerbation; Z79.899 Other long term (current) drug therapy; I10 Essential (primary) hypertension; R60.0 Localized edema; E78.5 Hyperlipidemia, unspecified; Z95.5 Presence of coronary angioplasty implant and graft; I25.10 Atherosclerotic heart disease of native coronary artery without angina pectoris; Z79.82 Long term (current) use of aspirin; J20.8 Acute bronchitis due to other specified organisms; Z79.02 Long term (current) use of antithrombotics/antiplatelets; I25.2 Old myocardial infarction; F17.210 Nicotine dependence, cigarettes, uncomplicated; R06.01 Orthopnea
CPT/HCPCS: 71046; 80048; 83880; 84484; 85025; 87631; 93005; 94640; 96374; 99283; A4216

== ENCOUNTER → 2025-01-28 | Outpatient (CLI) | payer MEDICARE, SELFPAY ==
[2025-01-28 18:01] LABS: Hematocrit 37.1 % (40-54); Hemoglobin 12.3 g/dL (13.0-16.5); Immature Granulocytes Count 0.010 X10^3/uL (0.0-0.0); Mean Corp Hgb Conc 33.2 g/dL (32-36); Mean Corpuscular Volume 100.5 fL (80-94); Mean Platelet Vol. 10.4 fl (6.2-12.0); NRBC Flagged by Analyzer 0 % (0-5); Platelet Count 227 K/mm3 (150-450); RBC Distribution Width CV 14.2 % (11.6-14.6); RBC Distribution Width SD 52.5 fl (35.1-43.9); Red Blood Count 3.69 M/mm3 (4.6-6.2); White Blood Count 7.4 K/mm3 (4.4-11.0)
[2025-01-28 18:38] LABS: AST(SGOT) 20 U/L (<=37); Alanine Aminotransfer ALT/SGPT 22 U/L (<=46); Albumin, Serum 4.0 g/dL (3.4-4.8); Alkaline Phosphatase 71 U/L (40-129); Anion Gap 10 (5-15); BUN 25 mg/dL (4-19); BUN/Creat Ratio 23.3 RATIO (10-20); Calcium,Total 9.5 mg/dL (7.6-11.0); Carbon Dioxide 26.7 mmol/L (21.0-32.0); Chloride 105 mmol/L (98-108); Globulin 2.1 g/dL (2.2-4.2); Glucose 88 mg/dL (70-99); Potassium 4.3 mmol/L (3.3-5.1)
[2025-01-28 19:06] LABS: Vitamin B12 2542 pg/mL (180-914)
== END | disposition home or self-care (01) ==
PROVIDERS: PCP Internal Medicine; Referring Provider Internal Medicine; Visit Provider Internal Medicine
DX: M79.601 Pain in right arm (principal); M79.602 Pain in left arm; R20.2 Paresthesia of skin
CPT/HCPCS: 36415; 80053; 82607; 84443; 85025